=== PATIENT | female | born 1975 | race Caucasian/White ===

== ENCOUNTER 2021-10-12 11:50 | Emergency (ER) | payer OTHER ==
[2021-10-12 12:08] VITALS: O2SAT 98
--- NOTE | 2021-10-12 12:21 | XRAY ---
Indication: Pain following injury one week ago. Comparison: None 3 nonweightbearing views right foot demonstrates small spurring of the calcaneus and navicular bone. No other bony, articular, or soft tissue abnormalities.
--- NOTE | 2021-10-12 12:25 | XRAY ---
Indication: Pain following injury one week ago. Comparison: None 3 view right ankle demonstrates small spurring of the posterior/plantar calcaneus, anterior/posterior distal tibia, and navicular bone. No other bony, articular, or soft tissue abnormalities.
--- NOTE | 2021-10-12 12:32 | ERPHSYRPT ---
- History of Present Illness Time Seen by Provider: 10/12/21 12:10 Source: patient Exam Limitations: no limitations Patient Subjective Stated Complaint: Pt states "I stepped down on my right foot last week and it has hurt since." Triage Nursing Assessment: Pt presented alert and oriented X 3, skin wpd Pt ambulates with an upright steady gait, able to speak in clear full sentences. Pt stated her pain was a 10 out of 10 while laughing and joking. Physician History: Patient is a 46-year-old white female who stepped down from a step and landed wrongly and is complained of pain and swelling in the right foot and ankle for the past week which is getting worse. She denies any other injury or problems at present. Method of Injury: twisted Occurred: last week Quality: constant Severity of Pain-Max: moderate Severity of Pain-Current: moderate Lower Extremities Pain: foot: right (Puffiness on the dorsal lateral portion of the foot), ankle: right (Swelling of the lateral malleolus) Modifying Factors: Improves With: movement Associated Symptoms: none Allergies/Adverse Reactions: Penicillins Allergy (Severe, Verified 10/12/21 12:09) swelling of throat Home Medications: Buspirone HCl 5 mg [Buspar 5 mg] 10 mg PO DAILY 10/12/21 [History] Duloxetine HCl 60 mg PO DAILY 10/12/21 [History] Gabapentin 400 mg [Neurontin 400 MG] 400 mg PO TID 10/12/21 [History] Hydroxyzine HCl 50 mg/ml [Vistaril 50 MG/ML] 50 mg PO DAILY 10/12/21 [History] Hx Tetanus, Diphtheria Vaccination/Date Given: No Hx Influenza Vaccination/Date Given: Yes Hx Pneumococcal Vaccination/Date Given: No Immunizations Up to Date: Yes Travel Risk - International Travel Have you traveled outside of the country in past 3 weeks: No - Coronavirus Screening Are you exhibiting any of the following symptoms?: No Close contact with a COVID-19 positive Pt in past 14-21 Days: No - Vaccine Status Have you recieved a Covid-19 vaccination: No - Review of Systems Constitutional: No Fever, No Chills Eyes: No Symptoms Ears, Nose, & Throat: No Symptoms Respiratory: No Cough, No Dyspnea Cardiac: No Chest Pain, No Edema, No Syncope Abdominal/Gastrointestinal: No Abdominal Pain, No Nausea, No Vomiting, No Diarrhea Genitourinary Symptoms: No Dysuria Musculoskeletal: No Back Pain, No Neck Pain Skin: No Rash Neurological: No Dizziness, No Focal Weakness, No Sensory Changes Psychological: No Symptoms Endocrine: No Symptoms All Other Systems: Reviewed and Negative - Past Medical History Pertinent Past Medical History: Yes Psycho-Social History: Anxiety, Depression Other Medical History: neuropathy. htn. hyperlipidemia - Past Surgical History Past Surgical History: No - Social History Smoking Status: Current every day smoker How long have you smoked: years Exposure to second hand smoke: Yes Drug Use: none Patient Lives Alone: No - Female History Hx Last Menstrual Period: 10/12/2021 Hx Now: No - Nursing Vital Signs Nursing Vital Signs: Initial Vital Signs Temperature 98.5 F 10/12/21 11:59 Pulse Rate 76 10/12/21 11:59 Respiratory Rate 20 10/12/21 11:59 Blood Pressure 168/88 10/12/21 11:59 O2 Sat by Pulse Oximetry 98 10/12/21 11:59 Pain Scale Pain Intensity 10 - Physical Exam General Appearance: mild distress, alert Eyes, Ears, Nose, Throat Exam: moist mucous membranes Neck Exam: normal inspection, non-tender, supple Cardiovascular/Respiratory Exam: chest non-tender, no respiratory distress Back Exam: normal inspection, normal range of motion Hips Exam: bilateral: non-tender, normal inspection, normal range of motion Legs Exam: bilateral leg: non-tender, normal inspection, normal range of motion Knees Exam: bilateral knee: non-tender, normal inspection, normal range of motion Ankle Exam: right ankle: pain, soft tissue tenderness, swelling Foot Exam: right foot: pain, soft tissue tenderness, swelling Neuro/Tendon Exam: normal sensation, normal motor functions Mental Status Exam: alert, oriented x 3, cooperative Skin Exam: normal color, warm, dry SpO2 Interpretation: normal SpO2: 98 O2 Delivery: Room Air Procedures - Splinting Time of Procedure: 12:32 Location of Splint: Right, Foot, Ankle Type of Splint: Walking Boot/Shoe Splint Applied By: ED Nurse Pre-Proc Neuro Vasc Exam: normal Post-Proc Neuro Vasc Exam: neurovascular intact - Course Nursing assessment & vital signs reviewed: Yes - Radiology Exams Ankle X-ray Interpretation: Interpreted by me, Other (X-ray shows some bone spurring but no obvious fracture or dislocation.) Ordered Tests: Active Orders 24 hr Category Date Time Status ANKLE (3 VIEWS) Stat Exams 10/12/21 11:56 Completed FOOT (MINIMUM 3 VIEWS) Stat Exams 10/12/21 11:56 Completed - Progress Progress: unchanged - Departure Departure Disposition: Home Clinical Impression: Sprain of right ankle Condition: Stable Critical Care Time: No Instructions: Foot Sprain (DC) Forms: Work/School Release Form Prescriptions: Diclofenac Sodium 50 mg [Voltaren 50 mg] 50 mg PO TID #15 cap
[2021-10-12 12:50] VITALS: BP 160/70; PULSE 80
== END 2021-10-12 12:57 | disposition home or self-care (01) ==
LOC: ED 11:50
DX: S93.401A Sprain of unspecified ligament of right ankle, initial encounter (principal); X50.1XXA Overexertion from prolonged static or awkward postures, initial encounter; M79.671 Pain in right foot; I10 Essential (primary) hypertension; E78.5 Hyperlipidemia, unspecified
CPT/HCPCS: 73610; 73630; 99284; L4386

== ENCOUNTER 2021-10-24 10:46 | Emergency (ER) | payer OTHER ==
[2021-10-24 11:05] VITALS: BP 120/77; PULSE 68; O2SAT 98
--- NOTE | 2021-10-24 11:11 | ERPHSYRPT ---
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 Triage Nursing Assessment: pt alert, walked in, resp easy, skin w/d/p. 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 She noticed that in the last 24 hours there was surrounding redness and seems to have coalesced to a small abscess and appears to be draining spontaneously. She has full range of motion sensation is intact she also complains of chronic right otitis externa the ears been draining and has been painful for several days. Timing/Duration: yesterday Severity: mild Modifying Factors: Improves With: nothing Associated Symptoms: denies symptoms Allergies/Adverse Reactions: Penicillins Allergy (Severe, Verified 10/24/21 10:57) swelling of throat Home Medications: Buspirone HCl 5 mg [Buspar 5 mg] 10 mg PO DAILY 10/12/21 [History] Duloxetine HCl 60 mg PO DAILY 10/12/21 [History] Gabapentin 400 mg [Neurontin 400 MG] 400 mg PO TID 10/12/21 [History] Hydroxyzine HCl 50 mg/ml [Vistaril 50 MG/ML] 50 mg PO DAILY 10/12/21 [History] Hx Tetanus, Diphtheria Vaccination/Date Given: No Hx Influenza Vaccination/Date Given: Yes Hx Pneumococcal Vaccination/Date Given: No Immunizations Up to Date: Yes Travel Risk - International Travel Have you traveled outside of the country in past 3 weeks: No - Coronavirus Screening Are you exhibiting any of the following symptoms?: No Close contact with a COVID-19 positive Pt in past 14-21 Days: No - Vaccine Status Have you recieved a Covid-19 vaccination: No - Review of Systems Constitutional: No Fever, No Chills Eyes: No Symptoms Ears, Nose, & Throat: Ear Pain, Ear Discharge Respiratory: No Cough, No Dyspnea Cardiac: No Chest Pain, No Edema, No Syncope Abdominal/Gastrointestinal: No Abdominal Pain, No Nausea, No Vomiting, No Diarrhea Genitourinary Symptoms: No Dysuria Musculoskeletal: No Back Pain, No Neck Pain Skin: Other (Small red warm pustular area right wrist), No Rash Neurological: No Dizziness, No Focal Weakness, No Sensory Changes Psychological: No Symptoms Endocrine: No Symptoms All Other Systems: Reviewed and Negative - Past Medical History Pertinent Past Medical History: Yes Neurological History: Migraines Cardiac History: High Cholesterol, Hypertension Psycho-Social History: Anxiety, Depression Other Medical History: neuropathy. htn. hyperlipidemia - Past Surgical History Past Surgical History: No - Social History Smoking Status: Current every day smoker How long have you smoked: years Exposure to second hand smoke: Yes Drug Use: none Patient Lives Alone: No - Female History Hx Last Menstrual Period: sep 2021 Hx Now: No - Nursing Vital Signs Nursing Vital Signs: Initial Vital Signs Temperature 96.6 F 10/24/21 11:00 Pulse Rate 68 10/24/21 11:00 Respiratory Rate 18 10/24/21 11:00 Blood Pressure 120/77 10/24/21 11:00 O2 Sat by Pulse Oximetry 98 10/24/21 11:00 Pain Scale Pain Intensity 4 - Physical Exam General Appearance: no apparent distress, alert Eye Exam: PERRL/EOMI, eyes nml inspection Ears, Nose, Throat Exam: TMs normal, pharynx normal, moist mucous membranes, TM abnormal (R), other (Right ear is inflamed canal is swollen there is clear serous fluid.) Neck Exam: normal inspection, non-tender, supple, full range of motion Respiratory Exam: normal breath sounds, lungs clear, No respiratory distress Cardiovascular Exam: regular rate/rhythm, normal heart sounds, normal peripheral pulses Gastrointestinal/Abdomen Exam: soft, normal bowel sounds, No tenderness, No mass Back Exam: normal inspection, normal range of motion, No CVA tenderness, No vertebral tenderness Extremity Exam: normal range of motion, pelvis stable, other (Examination of the right wrist shows a small pustular area with surrounding erythema about quarter size which is tender to touch.) Neurologic Exam: alert, oriented x 3, cooperative, normal mood/affect, nml cerebellar function, nml station & gait, sensation nml, No motor deficits Skin Exam: normal color, warm, dry, No rash Lymphatic Exam: No adenopathy SpO2: 98 - Course Nursing assessment & vital signs reviewed: Yes - Radiology Exams Wrist X-ray Interpretation: Reviewed by me, No Fracture, Other (No foreign bodies) Ordered Tests: Active Orders 24 hr Category Date Time Status WRIST (MIN 3 VIEWS) Stat Exams 10/24/21 11:04 Completed - Progress Progress: unchanged - Departure Departure Disposition: Home Clinical Impression: Otitis externa, Cellulitis Condition: Stable Critical Care Time: No Referrals: DOCTOR,NO FAMILY [Primary Care Provider] - Follow up/PCP as directed Instructions: Outer Ear Infection (DC) Prescriptions: clindamycin HCL [Cleocin HCl] 300 mg PO TID 7 Days #21 cap Alon/Baci/Poly/Hc Ear Susp [Cortisporin Ear Drops 10 ml Suspension] 10 ml OT QID #10 ml
--- NOTE | 2021-10-24 11:26 | XRAY ---
Indication: Pain and swelling. Foreign body. Comparison: None 3 view right wrist demonstrates normal bones, articulation, and soft tissues. Negative for radiopaque foreign body.
== END 2021-10-24 11:56 | disposition home or self-care (01) ==
LOC: ED 10:46
DX: H60.91 Unspecified otitis externa, right ear (principal); L03.113 Cellulitis of right upper limb; I10 Essential (primary) hypertension; E78.5 Hyperlipidemia, unspecified; G62.9 Polyneuropathy, unspecified; Z79.899 Other long term (current) drug therapy; Z72.0 Tobacco use
CPT/HCPCS: 73110; 99283

== ENCOUNTER 2021-11-15 11:16 | Emergency (ER) | payer OTHER ==
[2021-11-15 11:30] VITALS: O2SAT 98
--- NOTE | 2021-11-15 11:42 | ERPHSYRPT ---
- History of Present Illness Time Seen by Provider: 11/15/21 11:35 Source: patient Exam Limitations: no limitations Patient Subjective Stated Complaint: Right sided earache Triage Nursing Assessment: Patient ambulated back to ED and transferred self to bed. Patient A+O X3. Patient's skin pink, warm and dry. Patient complains of right sided ear pain for one week. Patient complains of yellow drainage coming from right ear. Patient complains of pain 8/10. Physician History: Patient is a 46-year-old female presents to our ED with complaints of pain to her right ear. Patient states she has been experiencing drainage from her right ear for approximately 1 week. Drainage described as yellow in color. Patient describes 8 out of 10 pain. No mastoid tenderness. No difficulty hearing. No dizziness. Symptoms are progressive. Symptoms are moderate in intensity. No specific worsening improving factors. No associated headache. No nausea or vomiting. No fever. No trauma, no neck pain no photophobia. Patient has no meningeal signs. Patient otherwise healthy. Patient voices no other complaints or concerns at this time. Timing/Duration: gradual onset Severity: moderate ENT Location: ear (R) Prearrival Treatment: no prearrival treatment Modifying Factors: Improves With: nothing Associated Symptoms: ear drainage, No fever, No facial pain/swelling, No headache, No hearing loss, No jaw pain, No nasal congestion/drainage, No poor fluid intake, No poor solids intake, No ringing of ears Allergies/Adverse Reactions: Penicillins Allergy (Severe, Verified 11/15/21 11:22) swelling of throat Home Medications: Buspirone HCl 5 mg [Buspar 5 mg] 10 mg PO DAILY 10/12/21 [History] Duloxetine HCl 60 mg PO DAILY 10/12/21 [History] Gabapentin 400 mg [Neurontin 400 MG] 400 mg PO TID 10/12/21 [History] Hydroxyzine HCl 50 mg/ml [Vistaril 50 MG/ML] 50 mg PO DAILY 10/12/21 [History] Hx Tetanus, Diphtheria Vaccination/Date Given: No Hx Influenza Vaccination/Date Given: No Hx Pneumococcal Vaccination/Date Given: No Immunizations Up to Date: Yes Travel Risk - International Travel Have you traveled outside of the country in past 3 weeks: No - Coronavirus Screening Are you exhibiting any of the following symptoms?: No Close contact with a COVID-19 positive Pt in past 14-21 Days: No - Vaccine Status Have you recieved a Covid-19 vaccination: No - Review of Systems Constitutional: No Symptoms, No Fever, No Chills Eyes: No Symptoms Ears, Nose, & Throat: No Symptoms Respiratory: No Symptoms, No Cough, No Dyspnea Cardiac: No Symptoms, No Chest Pain, No Edema, No Syncope Abdominal/Gastrointestinal: No Symptoms, No Abdominal Pain, No Nausea, No Vomiting, No Diarrhea Genitourinary Symptoms: No Symptoms, No Dysuria Musculoskeletal: No Symptoms, No Back Pain, No Neck Pain Skin: No Symptoms, No Rash Neurological: No Symptoms, No Dizziness, No Focal Weakness, No Sensory Changes Psychological: No Symptoms Endocrine: No Symptoms Hematologic/Lymphatic: No Symptoms Immunological/Allergic: No Symptoms All Other Systems: Reviewed and Negative - Past Medical History Pertinent Past Medical History: Yes Neurological History: Migraines Cardiac History: High Cholesterol, Hypertension Psycho-Social History: Anxiety, Depression Other Medical History: neuropathy. htn. hyperlipidemia - Past Surgical History Past Surgical History: No - Social History Smoking Status: Never smoker How long have you smoked: years Exposure to second hand smoke: No Drug Use: none Patient Lives Alone: No - Female History Hx Now: No - Nursing Vital Signs Nursing Vital Signs: Initial Vital Signs Temperature 97.9 F 11/15/21 11:23 Pulse Rate 63 11/15/21 11:23 Respiratory Rate 18 11/15/21 11:23 Blood Pressure 146/79 11/15/21 11:23 O2 Sat by Pulse Oximetry 98 11/15/21 11:23 Pain Scale Pain Intensity 8 - Physical Exam General Appearance: no apparent distress, alert Eye Exam: bilateral eye: normal inspection, PERRL, EOMI Ear Exam: right ear: discharge, TM red, left ear: auricle normal, canal normal, TM normal, bleeding Nasal Exam: normal inspection Throat Exam: pharynx normal, moist mucus membranes, No tonsillar exudate Neck Exam: normal inspection, non-tender, supple, full range of motion, trachea midline Cardiovascular/Respiratory Exam: normal breath sounds, regular rate/rhythm, heart sounds normal, no respiratory distress, normal peripheral pulses, No decreased breath sounds Abdominal Exam: non-tender, soft, no organomegaly, No tenderness Neurologic Exam: alert, oriented x 3, icu staff nurse II-XII nml as tested, nml cerebellar function, sensation nml, No motor deficits, No sensory deficit, No slurred speec h Skin Exam: normal color, warm, dry, No rash SpO2 Interpretation: normal SpO2: 98 O2 Delivery: Room Air - Course Nursing assessment & vital signs reviewed: Yes - Progress Progress: improved Progress Note: Patient requested ibuprofen for pain. 600 mg ibuprofen p.o. provided. We administered Cortisporin eardrops into the involved ear here in our ED. Patient was given the bottle. There should be enough eardrops medication to last for a week or at least until her visit with primary care doctor within 48 hours. Patient agrees to follow-up with her primary care doctor within 48 hours for evaluation. There is no mastoid pain or tenderness. No indication for further work-up. Patient states he was treated for her ear infection last week. Patient was treated with oral antibiotics. However patient has no otitis externa which requires eardrops. Portions of this note were created with voice recognition technology. There may be grammatical, spelling, punctuation or sound alike errors 11/15/21 11:55 Counseled pt/family regarding: diagnosis, need for follow-up - Departure Departure Disposition: Home Clinical Impression: Otitis externa Condition: Good Critical Care Time: No Referrals: DOCTOR,NO FAMILY [Primary Care Provider] - Follow up/PCP as directed JORGE BRISENO [ACTIVE STAFF] - Follow up/PCP as directed Additional Instructions: Discharge/Care Plan KAREN CHAUHAN was seen on 11/15/21 in the Emergency Room. The patient was counseled regarding Diagnosis,Lab results, Imaging studies, need for follow up and when to return to the Emergency Room. Prescriptions given: Discharge Note I have spoken with the patient and/or caregivers. I have explained the patient's condition, diagnosis and treatment plan based on the information available to me at this time. I have answered the patient's and/or caregiver's questions and addressed any concerns. The patient and/or caregivers have as good understanding of the patient's diagnosis, condition and treatment plan as can be expected at this point. The vital signs have been stable. The patient's condition is stable and appropriate for discharge from the emergency department. The patient will pursue further outpatient evaluation with the primary care physician or other designated or consulting physician as outlined in the discharge instructions. The patient and/or caregivers are agreeable to this plan of care and follow-up instructions have been explained in detail. The patient and/or caregivers have received these instruction. The patient/and or caregivers are aware that any significant change in condition or worsening of symptoms should prompt an immediate return to this or the closest emergency department or call 911.
[2021-11-15] MEDS ORDERED: CORTISPORIN EAR DROPS 10 ML SUSPENSION OT ONE (11:54)
[2021-11-15] MEDS ORDERED: MOTRIN 600 MG ONE (11:55)
[2021-11-15] MEDS ORDERED: CORTISPORIN EAR DROPS Solution 1OML OT ONE (11:56)
[2021-11-15] MEDS ORDERED: MOTRIN 600 MG PO ONE (11:57)
[2021-11-15 12:12] VITALS: BP 140/62; PULSE 60
[2021-11-15] MEDS ORDERED: CORTISPORIN EAR DROPS 10 ML SUSPENSION OT SCH (12:15)
== END 2021-11-15 12:26 | disposition home or self-care (01) ==
LOC: ED 11:16
DX: H60.91 Unspecified otitis externa, right ear (principal); H92.01 Otalgia, right ear; H92.11 Otorrhea, right ear; E78.5 Hyperlipidemia, unspecified; I10 Essential (primary) hypertension; G62.9 Polyneuropathy, unspecified; Z79.899 Other long term (current) drug therapy
CPT/HCPCS: 99283; A9270-GY

== ENCOUNTER 2021-11-28 12:12 | Emergency (ER) | payer OTHER ==
[2021-11-28] MEDS ORDERED: TORAdol 30 mg Injection IM ONE (12:27)
[2021-11-28] MEDS ORDERED: TORAdol 30 mg Injection ONE (12:31)
--- NOTE | 2021-11-28 12:56 | XRAY ---
Indication: Heel pain. Comparison: October 12, 2021. 3 portable views right ankle unchanged again demonstrating small spurring posterior/plantar calcaneus, anterior/posterior distal tibia, and navicular bone. No new/acute abnormalities.
--- NOTE | 2021-11-28 13:20 | ERPHSYRPT ---
- History of Present Illness Time Seen by Provider: 11/28/21 12:27 Source: patient Exam Limitations: no limitations Patient Subjective Stated Complaint: Pt states "I was here for this awhile ago and you guys gave me a boot for this and said I have bone spurs and It still h urts." Triage Nursing Assessment: Pt presented alert and oriented X 3, skin pwd Pt ambulates with a limp. Pt right ankle slightly swollen and right heel slightly swollen. no other injuries or complaints. Physician History: 46 years old female presented in the ER with chief complaint of right ankle pain and swelling for the last 3 weeks after she tripped and bent her ankle, was evaluated in the ER here, was given walking boot but her symptoms are not improving. Patient reports it is better with resting but she is on her feet all day long and cannot use her long boot all the time and lately hurting more with ambulation with swelling of lateral ankle and pain shoots in the lower leg. No new fall or trauma reported. Patient is currently at the rehab and was sent in here for reevaluation. Method of Injury: twisted Occurred: days ago (20) Severity of Pain-Max: moderate Severity of Pain-Current: moderate Lower Extremities Pain: ankle: right Modifying Factors: Improves With: immobilization. Worsens With: movement Associated Symptoms: No unable to bear weight Allergies/Adverse Reactions: Penicillins Allergy (Severe, Verified 11/15/21 11:22) swelling of throat Home Medications: Buspirone HCl 5 mg [Buspar 5 mg] 10 mg PO DAILY 10/12/21 [History] Duloxetine HCl 60 mg PO DAILY 10/12/21 [History] Gabapentin 400 mg [Neurontin 400 MG] 400 mg PO TID 10/12/21 [History] Hydroxyzine HCl 50 mg/ml [Vistaril 50 MG/ML] 50 mg PO DAILY 10/12/21 [History] Hx Tetanus, Diphtheria Vaccination/Date Given: No Hx Influenza Vaccination/Date Given: No Hx Pneumococcal Vaccination/Date Given: No Immunizations Up to Date: Yes Travel Risk - International Travel Have you traveled outside of the country in past 3 weeks: No - Coronavirus Screening Are you exhibiting any of the following symptoms?: No Close contact with a COVID-19 positive Pt in past 14-21 Days: No - Vaccine Status Have you recieved a Covid-19 vaccination: No - Review of Systems Constitutional: No Symptoms Ears, Nose, & Throat: No Symptoms Respiratory: No Symptoms Cardiac: No Symptoms Abdominal/Gastrointestinal: No Symptoms Genitourinary Symptoms: No Symptoms (2-3) Musculoskeletal: Injury, Joint Pain, Joint Swelling Skin: No Symptoms Neurological: No Symptoms Hematologic/Lymphatic: No Symptoms Immunological/Allergic: No Symptoms - Past Medical History Pertinent Past Medical History: Yes Neurological History: Migraines Cardiac History: High Cholesterol, Hypertension Psycho-Social History: Anxiety, Depression Other Medical History: neuropathy. htn. hyperlipidemia - Past Surgical History Past Surgical History: No - Social History Smoking Status: Never smoker How long have you smoked: years Exposure to second hand smoke: No Drug Use: none Patient Lives Alone: No - Female History Hx Last Menstrual Period: 11/02/2021 Hx Now: No - Nursing Vital Signs Nursing Vital Signs: Initial Vital Signs Temperature 99.3 F 11/28/21 12:16 Pulse Rate 89 11/28/21 12:16 Respiratory Rate 18 11/28/21 12:16 Blood Pressure 143/84 11/28/21 12:16 O2 Sat by Pulse Oximetry 99 11/28/21 12:16 Pain Scale Pain Intensity 6 - Physical Exam General Appearance: no apparent distress, alert Eyes, Ears, Nose, Throat Exam: normal ENT inspection Neck Exam: normal inspection, supple, full range of motion Cardiovascular/Respiratory Exam: normal breath sounds, regular rate/rhythm Back Exam: normal inspection Legs Exam: bilateral leg: non-tender, normal inspection, normal range of motion, no evidence of injury Knees Exam: bilateral knee: non-tender, normal inspection, normal range of motion, no evidence of injury Ankle Exam: right ankle: bone tenderness (Lateral malleolus), pain, soft tissue tenderness, swelling, left ankle: non-tender, normal inspection, no evidence of injury, bilateral ankle: normal range of motion Foot Exam: right foot: soft tissue tenderness (Anterolateral foot), left foot: normal inspection, bilateral foot: non-tender, normal range of motion Neuro/Tendon Exam: normal sensation, normal motor functions, normal tendon functions Mental Status Exam: alert, oriented x 3, cooperative Skin Exam: normal color SpO2 Interpretation: normal SpO2: 99 O2 Delivery: Room Air Ordered Tests: Active Orders 24 hr Category Date Time Status ANKLE (3 VIEWS) Stat Exams 11/28/21 Completed Medication Summary Discontinued Medications Generic Name Dose Route Start Last Admin Trade Name Go PRN Reason Stop Dose Admin Ketorolac Tromethamine 30 mg 11/28/21 12:27 11/28/21 12:36 Ketorolac Tromethamine 30 Mg/Ml Inj IM 11/28/21 12:28 30 mg STAT ONE Administration Ketorolac Tromethamine Confirm 11/28/21 12:31 Ketorolac Tromethamine 30 Mg/Ml Inj Administered 11/28/21 12:32 Dose 30 mg .ROUTE .STK-MED ONE - Progress Progress: improved Progress Note: 11/28/21 13:18 Obtained another x-ray which are negative, given Toradol and feeling better on reevaluation. Recommended outpatient follow-up with podiatry and using walking boot all the time. Counseled pt/family regarding: diagnosis, need for follow-up, rad results - Departure Departure Disposition: Home Clinical Impression: Sprain of right ankle Condition: Stable Critical Care Time: No Referrals: DOCTOR,NO FAMILY [Primary Care Provider] - Follow up/PCP as directed SAMIRA RAMIREZ DPM [ACTIVE STAFF] - Follow up/PCP as directed (Call tomorrow for appointment for reevaluation) Instructions: Ankle Sprain (DC) Additional Instructions: Take Tylenol/diclofenac as needed for pain, intermittent ice, elevation, avoid exertional activities, use walking boot and weightbearing as tolerated. Follow- up with podiatry for reevaluation. Prescriptions: Diclofenac Sodium 50 mg PO TID PRN 7 Days #20 tab PRN Reason: Pain
[2021-11-28 13:26] VITALS: BP 138/78; PULSE 84
[2021-11-28 13:54] VITALS: O2SAT 99
== END 2021-11-28 13:37 | disposition home or self-care (01) ==
LOC: ED 12:12
DX: S93.401A Sprain of unspecified ligament of right ankle, initial encounter (principal); W18.40XA Slipping, tripping and stumbling without falling, unspecified, initial encounter; E78.5 Hyperlipidemia, unspecified; I10 Essential (primary) hypertension
CPT/HCPCS: 73610; 96372; 99284; J1885

== ENCOUNTER 2022-01-02 10:04 | Emergency (ER) | payer OTHER ==
--- NOTE | 2022-01-02 10:14 | ERPHSYRPT ---
- History of Present Illness Time Seen by Provider: 01/02/22 10:13 Source: patient Exam Limitations: no limitations Physician History: This is an obese 46-year-old white female who has a history of hypertension, peripheral neuropathy, anxiety and elevated cholesterol who was seen by Dr. Rodriges approximately 4 days ago and given a prescription of Bactrim DS for treatment of a right upper leg infection. The infection has been there for 5 days. Patient also had a right outer ear infection and this area has improved on the antibiotics. However the right upper leg infection is more red. There is increased tenderness as well. Patient is unable to have any narcotics. She has had Keflex in the past without any issues. Patient would like Toradol for pain control. Timing/Duration: day(s) (5) Quality: burning, painful Severity: mild (To moderate) Location: extremities (Right upper outer leg) Possible Causes: no cause identified Allergies/Adverse Reactions: Penicillins Allergy (Severe, Verified 01/02/22 10:15) swelling of throat Home Medications: Buspirone HCl 5 mg [Buspar 5 mg] 10 mg PO DAILY 10/12/21 [History] Duloxetine HCl 60 mg PO DAILY 10/12/21 [History] Gabapentin 400 mg [Neurontin 400 MG] 400 mg PO TID 10/12/21 [History] Hydroxyzine HCl 50 mg/ml [Vistaril 50 MG/ML] 50 mg PO DAILY 10/12/21 [History] Lisinopril 10 mg [Zestril 10 MG] 10 mg PO DAILY 01/02/22 [History] Propranolol HCl 10 mg DAILY 01/02/22 [History] Rizatriptan Benzoate [Rizatriptan] 10 mg PO DAILY 01/02/22 [History] Hx Tetanus, Diphtheria Vaccination/Date Given: No Hx Influenza Vaccination/Date Given: No Hx Pneumococcal Vaccination/Date Given: No Travel Risk - International Travel Have you traveled outside of the country in past 3 weeks: No - Coronavirus Screening Are you exhibiting any of the following symptoms?: No Close contact with a COVID-19 positive Pt in past 14-21 Days: No - Vaccine Status Have you recieved a Covid-19 vaccination: No - Review of Systems Constitutional: No Symptoms Eyes: No Symptoms Ears, Nose, & Throat: No Symptoms Respiratory: No Symptoms Cardiac: No Symptoms Abdominal/Gastrointestinal: No Symptoms Genitourinary Symptoms: No Symptoms Musculoskeletal: No Symptoms Skin: Cellulitis, Induration (Right upper outer leg) Neurological: No Symptoms Psychological: No Symptoms Endocrine: No Symptoms Hematologic/Lymphatic: No Symptoms Immunological/Allergic: No Symptoms All Other Systems: Reviewed and Negative - Past Medical History Pertinent Past Medical History: Yes Neurological History: Migraines Cardiac History: High Cholesterol, Hypertension Psycho-Social History: Anxiety, Depression Other Medical History: neuropathy. htn. hyperlipidemia - Past Surgical History Past Surgical History: No - Social History Smoking Status: Never smoker How long have you smoked: years Exposure to second hand smoke: No Drug Use: none Patient Lives Alone: No - Nursing Vital Signs Nursing Vital Signs: Initial Vital Signs Temperature 98.4 F 01/02/22 10:10 Pulse Rate 76 01/02/22 10:10 Respiratory Rate 18 01/02/22 10:10 Blood Pressure 120/80 01/02/22 10:10 O2 Sat by Pulse Oximetry 98 01/02/22 10:10 Pain Scale Pain Intensity 9 - Physical Exam General Appearance: no apparent distress, alert, anxiety, obese Eye Exam: PERRL/EOMI, eyes nml inspection Ears, Nose, Throat Exam: normal ENT inspection, moist mucous membranes Neck Exam: normal inspection, non-tender, supple, full range of motion Respiratory Exam: airway intact, No chest tenderness, No respiratory distress Gastrointestinal/Abdomen Exam: No tenderness Pelvic Exam: not done Rectal Exam: not done Extremity Exam: normal range of motion, pelvis stable Neurologic Exam: alert, oriented x 3, cooperative, communications and signals supervisor II-XII nml as tested, normal mood/affect, nml cerebellar function, nml station & gait, sensation nml Skin Exam: other (Localized cellulitis and induration right upper outer thigh. No abscess present. I was able to express of tiny amount of fluid which was cultured) Lymphatic Exam: No adenopathy SpO2 Interpretation: normal O2 Delivery: Room Air - Course Nursing assessment & vital signs reviewed: Yes Ordered Tests: Active Orders 24 hr Category Date Time Status CULTURE,WOUND Stat Lab 01/02/22 10:33 Ordered Medication Summary Discontinued Medications Generic Name Dose Route Start Last Admin Trade Name Freq PRN Reason Stop Dose Admin Ceftriaxone Sodium 1,000 mg 01/02/22 10:33 Ceftriaxone Sodium 1000 Mg Inj Vial IM 01/02/22 10:34 STAT ONE Ketorolac Tromethamine 60 mg 01/02/22 10:33 Ketorolac Tromethamine 30 Mg/Ml Inj IM 01/02/22 10:34 STAT ONE - Progress Progress: unchanged, pain not gone completely Counseled pt/family regarding: diagnosis, need for follow-up - Departure Departure Disposition: Home Clinical Impression: Cellulitis of right leg Condition: Stable Critical Care Time: No Referrals: DOCTOR,NO FAMILY [Primary Care Provider] - Follow up/PCP as directed Additional Instructions: Scrub area of infection daily with soap and water. Continue applying your topical antibiotic until that is gone. Complete your Bactrim DS prescription then start the doxycycline prescription. Call Dr. Rodriges's office today to make arrangements for follow-up appointment for further evaluation and management.
[2022-01-02 10:15] VITALS: BP 120/80; PULSE 76; O2SAT 98
[2022-01-02] MEDS ORDERED: TORAdol 30 mg Injection IM ONE (10:33)
[2022-01-02] MEDS ORDERED: Rocephin 1000 MG INJ IM ONE (10:33)
[2022-01-02] MEDS ORDERED: Rocephin 1000 MG INJ ONE (10:39)
[2022-01-02] MEDS ORDERED: TORAdol 30 mg Injection ONE (10:39)
[2022-01-02] MEDS ORDERED: XYLOCAINE 1% HCL 20 ML MDV ONE (10:40)
== END 2022-01-02 11:22 | disposition home or self-care (01) ==
LOC: ED 10:04
DX: L03.115 Cellulitis of right lower limb (principal); M79.651 Pain in right thigh; E78.5 Hyperlipidemia, unspecified; I10 Essential (primary) hypertension; G62.9 Polyneuropathy, unspecified; Z79.899 Other long term (current) drug therapy
CPT/HCPCS: 87070; 87077; 87186; 96372; 99284; J0696; J1885

== ENCOUNTER 2022-01-10 14:28 | Emergency (ER) | payer OTHER ==
[2022-01-10 16:03] LABS: Absolute Neutrophil Ct (ANC) 6.43 (1.4-6.9); Basophil (Absolute #) 0.03 (0-0.4); Eosinophil % 1.2 % (0.00-5.0); Eosinophil (Absolute #) 0.11 (0-0.5); Hematocrit 40.4 % (35-47); Hemoglobin 13.2 gm/dl (12.0-16.0); Lymphocyte (Absolute #) 1.85 (1.0-4.6); Lymphocytes % 20.6 % (24.0-44.0); Mean Corpuscular Hemoglobin 29.4 pg (26-32); Mean Corpuscular Hgb Concent. 32.7 g/dl (32-36); Mean Platelet Volume 10.2 fl (7.5-11.0); Monocyte (Absolute #) 0.54 (0.0-1.3); Neutrophil % 71.9 % (36.0-66.0); Platelet Count 294 K/mm3 (150-450); Red Blood Count 4.49 M/mm3 (4.1-5.4)
[2022-01-10 16:14] LABS: ACETAMINOPHEN < 10 ug/ml (10-30); ALBUMIN 3.9 g/dL (3.5-5.0); ALKALINE PHOSPHATASE 132 U/L (38-126); ANION GAP 10.8 MEQ/L (5-15); BLOOD UREA NITROGEN 10 mg/dL (7-17); CHLORIDE 101 mmol/L (98-107); Calcium 8.8 mg/dL (8.4-10.2); Carbon Dioxide 28 mmol/L (22-30); Creatinine 1 0.72 mg/dL (0.52-1.04); EST GLOMERULAR FILTRATION RATE > 60.0 ML/MIN; ETHYL ALCOHOL < 10 mg/dL (0-10); Glucose 105 mg/dL (74-106); Potassium 4.2 mmol/L (3.5-5.1); SALICYLATE < 1.0 mg/dL (2-20); SGOT/AST 28 U/L (14-36); SGPT/ALT 60 U/L (0-35); SODIUM 136 mmol/L (137-145); Total Protein 6.8 g/dL (6.3-8.2)
--- NOTE | 2022-01-10 16:15 | ERPHSYRPT ---
- History of Present Illness Source: patient Exam Limitations: no limitations Patient Subjective Stated Complaint: " I've been under a lot of stress and I have thoughts of harming myself". Triage Nursing Assessment: Pt presents to ER with a friend from the [facility] (sober living). Pt is alert and orienting, she is willing to get help. Pt skin is pink, warm, and dry. Pt respirations are easy and unlabored. Pt is calm and cooraperative. Pt states that she has been under a lot of stress lately and having thoughts of suicide and self harm. Denies any plan. Gave her pills and razors to lady that is in charge at [facility] so she wouldn't hurt self. Pt has hx of anxiety and depression. Hx of substance abuse (meth) and has been sober since May 2021. Timing/Duration: day(s), week(s), gradual onset, worse Severity of Symptoms-Max: severe Severity of Symptoms-Current: severe Context related to: living circumstances Suicidal thoughts: gesture Associated Symptoms: anxiety, depressed, frustrated, impaired concentration, suicidal ideation Previous symptoms: same symptoms as today Hx Tetanus, Diphtheria Vaccination/Date Given: No Hx Influenza Vaccination/Date Given: No Hx Pneumococcal Vaccination/Date Given: No Immunizations Up to Date: No <WALTER SAMUELS - Last Filed: 01/10/22 18:56> <ERNIE MONAHAN - Last Filed: 01/10/22 20:57> - History of Present Illness Time Seen by Provider: 01/10/22 14:57 Physician History: 46 years old female with history of anxiety/depression/hypertension/hyperlipide caitlyn currently resident of [facility]/sober living presented in the ER with her friend with worsening symptoms of depression/frustration and suicidal ideations for quite some time which got really bad yesterday. Patient reports she is going through a lot of stress especially related to her 16-year old child. Patient denies any specific plan but does have history of suicidal ideations in the past with multiple behavioral health admissions. Patient wants help before it gets worse to the point that she has to actually committed. Denies any homicidal ideations. Denies any drug or alcohol use. (WALTER SAMUELS) Allergies/Adverse Reactions: Penicillins Allergy (Severe, Verified 01/10/22 15:01) swelling of throat Home Medications: Buspirone HCl 5 mg [Buspar 5 mg] 15 mg PO DAILY 10/12/21 [History] Duloxetine HCl 60 mg PO DAILY 10/12/21 [History] Gabapentin 400 mg [Neurontin 400 MG] 400 mg PO TID 10/12/21 [History] Hydroxyzine HCl 50 mg/ml [Vistaril 50 MG/ML] 50 mg PO DAILY 10/12/21 [History] Lisinopril 10 mg [Zestril 10 MG] 10 mg PO DAILY 01/02/22 [History] Propranolol HCl 10 mg DAILY 01/02/22 [History] Rizatriptan Benzoate [Rizatriptan] 10 mg PO DAILY 01/02/22 [History] Atorvastatin Calcium 10 mg PO DAILY 01/10/22 [History] Travel Risk - International Travel Have you traveled outside of the country in past 3 weeks: No - Coronavirus Screening Are you exhibiting any of the following symptoms?: No Close contact with a COVID-19 positive Pt in past 14-21 Days: No - Vaccine Status Have you recieved a Covid-19 vaccination: No <WALTER SAMUELS - Last Filed: 01/10/22 18:56> - Past Medical History Pertinent Past Medical History: Yes Neurological History: Migraines Cardiac History: High Cholesterol, Hypertension Musculoskeletal History: Arthritis Psycho-Social History: Anxiety, Depression Other Medical History: neuropathy. htn. hyperlipidemia - Past Surgical History Past Surgical History: No - Social History Smoking Status: Current every day smoker How long have you smoked: years Exposure to second hand smoke: No Drug Use: methamphetamines Patient Lives Alone: No - Female History Hx Last Menstrual Period: 01/08/22 Hx Now: No <WALTER SAMUELS - Last Filed: 01/10/22 18:56> - Review of Systems Constitutional: No Symptoms Eyes: No Symptoms Ears, Nose, & Throat: No Symptoms Respiratory: No Symptoms Cardiac: No Symptoms Abdominal/Gastrointestinal: No Symptoms Genitourinary Symptoms: No Symptoms Musculoskeletal: No Symptoms Skin: No Symptoms Neurological: No Symptoms Psychological: Anxiety, Depression, Suicidal Ideations Endocrine: No Symptoms Hematologic/Lymphatic: No Symptoms Immunological/Allergic: No Symptoms <ABRILWALTER - Last Filed: 01/10/22 18:56> - Physical Exam General Appearance: no apparent distress, alert, anxiety Eyes, Ears, Nose, Throat Exam: normal ENT inspection Neck Exam: normal inspection, non-tender, supple, full range of motion Respiratory Exam: normal breath sounds, lungs clear Cardiovascular Exam: regular rate/rhythm, normal heart sounds Gastrointestinal/Abdominal Exam: soft, normal bowel sounds, No tenderness Extremities Exam: normal inspection Current Suicidality: denies suicide plan Neurological Exam: alert, calm, seam rubber II-XII nml as tested, oriented x 3, No normal mood/affect Appearance: appropriate appearance, appropriate insight Behavior/Eye Contact/Speech: alert & cooperative, cooperative, good eye contact, normal speech Thoughts/Hallucinations: normal thought pattern, no apparent hallucination Skin Exam: normal color SpO2 Interpretation: normal SpO2: 98 O2 Delivery: Room Air <ABRIL,WALTER - Last Filed: 01/10/22 18:56> - Nursing Vital Signs Nursing Vital Signs: Initial Vital Signs Temperature 98.1 F 01/10/22 14:50 Pulse Rate 72 01/10/22 14:50 Respiratory Rate 18 01/10/22 14:50 Blood Pressure 120/78 01/10/22 14:50 O2 Sat by Pulse Oximetry 98 01/10/22 14:50 Pain Scale Pain Intensity 0 Ordered Tests: Active Orders 24 hr Category Date Time Status ACETAMINOPHEN Stat Lab 01/10/22 15:44 Completed CBC W DIFF Stat Lab 01/10/22 15:44 Completed CMP Stat Lab 01/10/22 15:44 Completed ETHYL ALCOHOL Stat Lab 01/10/22 15:44 Completed SALICYLATE Stat Lab 01/10/22 15:44 Completed Urine Triage Profile Stat Lab 01/10/22 16:32 Completed Lab/Rad Data: Laboratory Result Diagrams 01/10/22 15:44 01/10/22 15:44 Laboratory Results 01/10/22 01/10/22 01/10/22 Range/Units 16:46 16:32 16:32 WBC (4.0-10.5) K/mm3 RBC (4.1-5.4) M/mm3 Hgb (12.0-16.0) gm/dl Hct (35-47) % MCV (78-100) fl MCH (26-32) pg MCHC (32-36) g/dl RDW (11.5-14.0) % Plt Count (150-450) K/mm3 MPV (7.5-11.0) fl Gran % (36.0-66.0) % Eos # (Auto) (0-0.5) Absolute Lymphs (auto) (1.0-4.6) Absolute Monos (auto) (0.0-1.3) Lymphocytes % (24.0-44.0) % Monocytes % (0.0-12.0) % Eosinophils % (0.00-5.0) % Basophils % (0.0-0.4) % Absolute Granulocytes (1.4-6.9) Basophils # (0-0.4) Sodium (137-145) mmol/L Potassium (3.5-5.1) mmol/L Chloride (98-107) mmol/L Carbon Dioxide (22-30) mmol/L Anion Gap (5-15) MEQ/L BUN (7-17) mg/dL Creatinine (0.52-1.04) mg/dL Estimated GFR ML/MIN Glucose (74-106) mg/dL Calcium (8.4-10.2) mg/dL Total Bilirubin (0.2-1.3) mg/dL AST (14-36) U/L ALT (0-35) U/L Alkaline Phosphatase (38-126) U/L Serum Total Protein (6.3-8.2) g/dL Albumin (3.5-5.0) g/dL Urinalys Dipstick Clnc MAIN LAB Urine Color Cancelled Urine Appearance Cancelled Urine pH Cancelled Ur Specific [place] Cancelled Urine Protein Cancelled POC Urine Protein Conf NEGATIVE (Negative) Urine Ketones Cancelled Urine Blood Cancelled Urine Nitrite Cancelled Urine Bilirubin Cancelled Urine Urobilinogen Cancelled Ur Leukocyte Esterase Cancelled Urine Leukocytes NEGATIVE (NEGATIVE) Urine WBC (Auto) NONE (0-5) /HPF Urine RBC (Auto) NONE (0-2) /HPF U Epithel Cells (Auto) NONE (FEW) /HPF Urine Bacteria (Auto) NONE (NEGATIVE) /HPF Urine RBC NEGATIVE (0-5) Clifford/ul U Non-Squamous Epi Cells Cancelled Urine Mucus (Auto) SLIGHT (NEGATIVE) /HPF Ur Culture Indicated? NO Urine Culture Reflexed Cancelled Urine Glucose NEGATIVE (NEGATIVE) mg/dL Salicylates (2-20) mg/dL Urine Opiates Level NEGATIVE (NEGATIVE) Ur Methadone NEGATIVE (NEGATIVE) Acetaminophen (10-30) ug/ml Urine Barbiturates NEGATIVE (NEGATIVE) Ur Phencyclidine (PCP) NEGATIVE (NEGATIVE) Urine Amphetamine NEGATIVE (NEGATIVE) U Benzodiazepine Level NEGATIVE (NEGATIVE) Urine Cocaine NEGATIVE (NEGATIVE) Urine Marijuana (THC) NEGATIVE (NEGATIVE) Ethyl Alcohol (0-10) mg/dL Influenza Type A Ag NEGATIVE (NEGATIVE) Influenza Type B Ag NEGATIVE (NEGATIVE) RSV (PCR) NEGATIVE (Negative) SARS-CoV-2 (PCR) NEGATIVE (NEGATIVE) 01/10/22 01/10/22 Range/Units 15:44 15:44 WBC 9.0 (4.0-10.5) K/mm3 RBC 4.49 (4.1-5.4) M/mm3 Hgb 13.2 (12.0-16.0) gm/dl Hct 40.4 (35-47) % MCV 90.0 (78-100) fl MCH 29.4 (26-32) pg MCHC 32.7 (32-36) g/dl RDW 15.0 H (11.5-14.0) % Plt Count 294 (150-450) K/mm3 MPV 10.2 (7.5-11.0) fl Gran % 71.9 H (36.0-66.0) % Eos # (Auto) 0.11 (0-0.5) Absolute Lymphs (auto) 1.85 (1.0-4.6) Absolute Monos (auto) 0.54 (0.0-1.3) Lymphocytes % 20.6 L (24.0-44.0) % Monocytes % 6.0 (0.0-12.0) % Eosinophils % 1.2 (0.00-5.0) % Basophils % 0.3 (0.0-0.4) % Absolute Granulocytes 6.43 (1.4-6.9) Basophils # 0.03 (0-0.4) Sodium 136 L (137-145) mmol/L Potassium 4.2 (3.5-5.1) mmol/L Chloride 101 (98-107) mmol/L Carbon Dioxide 28 (22-30) mmol/L Anion Gap 10.8 (5-15) MEQ/L BUN 10 (7-17) mg/dL Creatinine 0.72 (0.52-1.04) mg/dL Estimated GFR > 60.0 ML/MIN Glucose 105 (74-106) mg/dL Calcium 8.8 (8.4-10.2) mg/dL Total Bilirubin 0.50 (0.2-1.3) mg/dL AST 28 (14-36) U/L ALT 60 H (0-35) U/L Alkaline Phosphatase 132 H (38-126) U/L Serum Total Protein 6.8 (6.3-8.2) g/dL Albumin 3.9 (3.5-5.0) g/dL Urinalys Dipstick Clnc Urine Color Urine Appearance Urine pH Ur Specific [place] Urine Protein POC Urine Protein Conf (Negative) Urine Ketones Urine Blood Urine Nitrite Urine Bilirubin Urine Urobilinogen Ur Leukocyte Esterase Urine Leukocytes (NEGATIVE) Urine WBC (Auto) (0-5) /HPF Urine RBC (Auto) (0-2) /HPF U Epithel Cells (Auto) (FEW) /HPF Urine Bacteria (Auto) (NEGATIVE) /HPF Urine RBC (0-5) Clifford/ul U Non-Squamous Epi Cells Urine Mucus (Auto) (NEGATIVE) /HPF Ur Culture Indicated? Urine Culture Reflexed Urine Glucose (NEGATIVE) mg/dL Salicylates < 1.0 L (2-20) mg/dL Urine Opiates Level (NEGATIVE) Ur Methadone (NEGATIVE) Acetaminophen < 10 L (10-30) ug/ml Urine Barbiturates (NEGATIVE) Ur Phencyclidine (PCP) (NEGATIVE) Urine Amphetamine (NEGATIVE) U Benzodiazepine Level (NEGATIVE) Urine Cocaine (NEGATIVE) Urine Marijuana (THC) (NEGATIVE) Ethyl Alcohol < 10 (0-10) mg/dL Influenza Type A Ag (NEGATIVE) Influenza Type B Ag (NEGATIVE) RSV (PCR) (Negative) SARS-CoV-2 (PCR) (NEGATIVE) - Progress Progress: unchanged <WALTER SAMUELS - Last Filed: 01/10/22 18:56> - Progress Will see patient in: other (transfer to Mental health facility) Counseled pt/family regarding: lab results, diagnosis, need for follow-up <ERNIE MONAHAN - Last Filed: 01/10/22 20:57> - Progress Progress Note: 01/10/22 18:47 She is medically cleared, behavioral health evaluation is pending and care is transferred to at shift change. (WALTER SAMUELS) 01/10/22 20:56 Please see attached telemetry mental health report. There advise patient to be transferred to mental health facility. (ERNIE MONAHAN) <WALTER SAMUELS - Last Filed: 01/10/22 18:56> - Departure Departure Disposition: Transfer Critical Care Time: Yes Critical Care Time(excluding separately billable procedures): Critical 30-74 mins <ERNIE MONAHAN - Last Filed: 01/10/22 20:57> - Departure Clinical Impression: Homicidal thoughts, Suicidal ideation Condition: Stable Referrals: ANDRZEJ LORENZO [Primary Care Provider] - Follow up/PCP as directed
[2022-01-10 17:31] LABS: INFLUENZA A NEGATIVE (NEGATIVE); INFLUENZA B NEGATIVE (NEGATIVE); RESPIRATORY SYNCTIAL VIRUS NEGATIVE (Negative); SARS-CoV-2 Xpert Express NEGATIVE (NEGATIVE)
[2022-01-10 18:00] LABS: Appearance CLEAR (CLEAR); Bilirubin NEGATIVE (NEGATIVE); Dipstick done @ ? MAIN LAB; Glucose NEGATIVE (NEGATIVE); Ketones NEGATIVE (NEGATIVE); Nitrite NEGATIVE (NEGATIVE); Ph 6.5 (5-6); Protein,Urine Dip NEGATIVE (Negative); RBC NEGATIVE Ery/ul (0-5); Specific Gravity 1.025 (1.005-1.025); Urobilinogen 0.2 mg/dL (0-1)
[2022-01-10 18:03] LABS: Mucus SLIGHT /HPF (NEGATIVE)
[2022-01-10 18:05] LABS: Urine Cultured Indicated? NO
[2022-01-10 18:24] LABS: Amphetamine,Urine NEGATIVE (NEGATIVE); Barbiturate,Urine NEGATIVE (NEGATIVE); Benzodiazepine,Urine NEGATIVE (NEGATIVE); Cocaine,Urine NEGATIVE (NEGATIVE); Methadone,Urine NEGATIVE (NEGATIVE); Opiate,Urine NEGATIVE (NEGATIVE); PCP,Urine NEGATIVE (NEGATIVE); THC,Urine NEGATIVE (NEGATIVE)
[2022-01-10 22:18] VITALS: BP 120/62; PULSE 67; O2SAT 98
== END 2022-01-10 22:37 ==
LOC: ED 14:28
DX: R45.851 Suicidal ideations (principal); R45.850 Homicidal ideations; Z62.820 Parent-biological child conflict; I10 Essential (primary) hypertension; E78.5 Hyperlipidemia, unspecified; F41.9 Anxiety disorder, unspecified; F32.A Depression, unspecified; Z72.0 Tobacco use; Z79.899 Other long term (current) drug therapy; Z20.828 Contact with and (suspected) exposure to other viral communicable diseases
CPT/HCPCS: 0241U; 36415; 80053; 80307; 81015; 84703; 85025; 99285; 99291; G0480; 90791; Q3014

== ENCOUNTER 2022-08-08 02:41 | Emergency (ER) | payer OTHER ==
[2022-08-08 02:50] VITALS: BP 124/62; PULSE 89; O2SAT 97
[2022-08-08] MEDS ORDERED: CLEOCIN 150 MG CAPSULE PO ONE (03:05)
[2022-08-08] MEDS ORDERED: DECADRON 10MG INJ. IM ONE (03:07)
[2022-08-08] MEDS ORDERED: DECADRON 10MG INJ. ONE (03:08)
[2022-08-08] MEDS ORDERED: CLEOCIN 150 MG CAPSULE ONE (03:08)
--- NOTE | 2022-08-08 03:12 | ERPHSYRPT ---
- History of Present Illness Time Seen by Provider: 08/08/22 03:00 Source: patient Exam Limitations: no limitations Patient Subjective Stated Complaint: I have a sore throat and both my ears hurt Triage Nursing Assessment: Pt ambulated into ER without diff. Pt c/o sore throat and bilat ear pain. Pt states, "I was around my son this weekend and he has strep throat, I think I have it now". Lungs clear, heart tones reg. Pt has hx of smoking 1PPD x35 years. Physician History: Patient is a 47-year-old female presents emergency department for evaluation of a sore throat. Patient also complains of bilateral ear pressure. Symptoms started yesterday. Patient states that her son was diagnosed with strep. Patient concerned that she may have strep throat. She has no other complaints. Symptoms are mild to moderate in intensity. Swallowing worsens symptoms. Patient able to tolerate oral secretions. Patient conversant. No muffled voice. No fever. No cough. Patient voices no other complaints or concerns at this time. Portions of this note were created with voice recognition technology. There may be grammatical, spelling, punctuation or sound alike errors Timing/Duration: yesterday Severity: moderate Associated Symptoms: denies symptoms Allergies/Adverse Reactions: Penicillins Allergy (Severe, Verified 08/08/22 02:56) swelling of throat Home Medications: Buspirone HCl 5 mg [Buspar 5 mg] 15 mg PO DAILY 10/12/21 [History] Gabapentin [Neurontin 400 MG] 600 mg PO TID 10/12/21 [History] Hydroxyzine HCl 50 mg/ml [Vistaril 50 MG/ML] 50 mg PO DAILY 10/12/21 [History] Lisinopril 10 mg [Zestril 10 MG] 10 mg PO DAILY 01/02/22 [History] Rizatriptan Benzoate [Rizatriptan] 10 mg PO DAILY 01/02/22 [History] Hx Tetanus, Diphtheria Vaccination/Date Given: Yes Hx Influenza Vaccination/Date Given: No Hx Pneumococcal Vaccination/Date Given: No Immunizations Up to Date: Yes Travel Risk - International Travel Have you traveled outside of the country in past 3 weeks: No - Coronavirus Screening Are you exhibiting any of the following symptoms?: Yes Symptoms: Cough: New Onset, Headaches/Body Aches/Fatigue Close contact with a COVID-19 positive Pt in past 14-21 Days: No - Vaccine Status Have you recieved a Covid-19 vaccination: No - Review of Systems Constitutional: No Symptoms, No Fever, No Chills Eyes: No Symptoms Ears, Nose, & Throat: No Symptoms Respiratory: No Symptoms, No Cough, No Dyspnea Cardiac: No Symptoms, No Chest Pain, No Edema, No Syncope Abdominal/Gastrointestinal: No Symptoms, No Abdominal Pain, No Nausea, No Vomiting, No Diarrhea Genitourinary Symptoms: No Symptoms, No Dysuria Musculoskeletal: No Symptoms, No Back Pain, No Neck Pain Skin: No Symptoms, No Rash Neurological: No Symptoms, No Dizziness, No Focal Weakness, No Sensory Changes Psychological: No Symptoms Endocrine: No Symptoms Hematologic/Lymphatic: No Symptoms Immunological/Allergic: No Symptoms All Other Systems: Reviewed and Negative - Past Medical History Pertinent Past Medical History: Yes Neurological History: Migraines, Stroke Cardiac History: Hypertension Musculoskeletal History: Arthritis Psycho-Social History: Anxiety, Depression Other Medical History: SCIATIC NERVE PAIN - Past Surgical History Past Surgical History: Yes Musculoskeletal: Other Other Surgical History: finger graft - Social History Smoking Status: Current every day smoker How long have you smoked: 35 years Exposure to second hand smoke: Yes Drug Use: none Patient Lives Alone: No - Female History Hx Last Menstrual Period: 08/02/22 Hx Now: No - Nursing Vital Signs Nursing Vital Signs: Initial Vital Signs Temperature 98.9 F 08/08/22 02:48 Pulse Rate 89 08/08/22 02:48 Respiratory Rate 22 08/08/22 02:48 Blood Pressure 124/62 08/08/22 02:48 O2 Sat by Pulse Oximetry 97 08/08/22 02:48 Pain Scale Pain Intensity 10 - Physical Exam General Appearance: no apparent distress, alert Eye Exam: PERRL/EOMI, eyes nml inspection Ears, Nose, Throat Exam: normal ENT inspection, TMs normal, moist mucous membranes, pharyngeal erythema, other (Anterior cervical lymphadenopathy) Neck Exam: normal inspection, non-tender, supple, full range of motion Respiratory Exam: normal breath sounds, lungs clear, airway intact, No respiratory distress Cardiovascular Exam: regular rate/rhythm, normal heart sounds, normal peripheral pulses Gastrointestinal/Abdomen Exam: soft, normal bowel sounds, No tenderness, No mass Back Exam: normal inspection, normal range of motion, No CVA tenderness, No vertebral tenderness Extremity Exam: normal inspection, normal range of motion, pelvis stable Neurologic Exam: alert, oriented x 3, cooperative, normal mood/affect, nml cerebellar function, nml station & gait, sensation nml, No motor deficits Skin Exam: normal color, warm, dry, No rash Lymphatic Exam: No adenopathy SpO2: 97 - Course Nursing assessment & vital signs reviewed: Yes Ordered Tests: Medication Summary Generic Name Dose Route Start Last Admin Trade Name Freq PRN Reason Stop Dose Admin Clindamycin HCl 300 mg 08/08/22 03:05 Clindamycin Hcl 150 Mg Capsule PO 08/08/22 03:06 STAT ONE - Progress Progress: improved Progress Note: Patient has pharyngitis. Patient received a dose of Decadron and clindamycin p.o. Patient is comfortable at this time. No pain. Patient declines ad ditional pain medication. A prescription for clindamycin was forwarded to patient's pharmacy. Patient agrees to follow-up with primary care doctor within 48 hours for evaluation. Portions of this note were created with voice recognition technology. There may be grammatical, spelling, punctuation or sound alike errors 08/08/22 03:13 Counseled pt/family regarding: diagnosis, need for follow-up, rad results - Departure Departure Disposition: Home Clinical Impression: Pharyngitis Condition: Stable Critical Care Time: No Referrals: ANDRZEJ LORENZO [Primary Care Provider] - Follow up/PCP as directed Additional Instructions: Discharge/Care Plan KAREN CHAUHAN was seen on 08/08/22 in the Emergency Room. The patient was counseled regarding Diagnosis,Lab results, Imaging studies, need for follow up and when to return to the Emergency Room. Prescriptions given: Discharge Note I have spoken with the patient and/or caregivers. I have explained the patient's condition, diagnosis and treatment plan based on the information available to me at this time. I have answered the patient's and/or caregiver's questions and addressed any concerns. The patient and/or caregivers have as good understanding of the patient's diagnosis, condition and treatment plan as can be expected at this point. The vital signs have been stable. The patient's condition is stable and appropriate for discharge from the emergency department. The patient will pursue further outpatient evaluation with the primary care physician or other designated or consulting physician as outlined in the discharge instructions. The patient and/or caregivers are agreeable to this plan of care and follow-up instructions have been explained in detail. The patient and/or caregivers have received these instruction. The patient/and or caregivers are aware that any significant change in condition or worsening of symptoms should prompt an immediate return to this or the closest emergency department or call 911. Prescriptions: Clindamycin HCl 150 mg [Cleocin 150 mg Capsule] 2 cap PO QID #56 cap
== END 2022-08-08 03:17 | disposition home or self-care (01) ==
LOC: ED 02:41
DX: J02.9 Acute pharyngitis, unspecified (principal); H92.03 Otalgia, bilateral; I10 Essential (primary) hypertension; Z72.0 Tobacco use; Z79.899 Other long term (current) drug therapy; Z28.310 Unvaccinated for COVID-19
CPT/HCPCS: 96372; 99283; J1100; A9270-GY

== ENCOUNTER 2023-03-08 02:18 | Emergency (ER) | payer OTHER ==
[2023-03-08] MEDS ORDERED: Sterile H2O 10 ml IJ ONE (03:46)
[2023-03-08] MEDS ORDERED: solu-MEDROL ONE (03:47)
[2023-03-08] MEDS ORDERED: Rocephin 1000 MG INJ ONE (03:47)
[2023-03-08] MEDS ORDERED: HYDROCODONE-ACETAMIN 2.5-108/5 ML SOLUTION ONE (03:47)
[2023-03-08] MEDS ORDERED: XYLOCAINE 1% HCL 20 ML MDV ONE (03:48)
[2023-03-08 04:15] LABS: Group A Strep NEGATIVE (NEGATIVE); INFLUENZA A NEGATIVE (NEGATIVE); INFLUENZA B NEGATIVE (NEGATIVE); RESPIRATORY SYNCTIAL VIRUS NEGATIVE (NEGATIVE); SARS-CoV-2 Xpert Express NEGATIVE (NEGATIVE)
--- NOTE | 2023-03-08 09:14 | XRAY ---
Indication: Cough. Sore throat. Comparison: None Portable chest inflated and clear. Heart and mediastinal structures within normal limits. Bony thorax intact. Impression: Nonacute chest.
== END 2023-03-08 04:22 | disposition home or self-care (01) ==
LOC: ED 02:18
DX: J06.9 Acute upper respiratory infection, unspecified (principal); R05.1 Acute cough; I10 Essential (primary) hypertension; Z79.899 Other long term (current) drug therapy; Z72.0 Tobacco use
CPT/HCPCS: 0241U; 71045; 87651; 96372; 96374; 96375; 99284; J0696; J2930; A9270-GY

== ENCOUNTER 2023-03-27 02:13 | Emergency (ER) | payer OTHER ==
--- NOTE | 2023-03-27 02:45 | ERPHSYRPT ---
- History of Present Illness Time Seen by Provider: 03/27/23 02:20 Source: patient Exam Limitations: no limitations Physician History: This is an obese 47-year-old white female who is bit by an insect and went to [facility] over 12 hours ago before work today but did not fill the prescription that was written for her. Patient stated that she could not miss work and is here now desiring the first dose of clindamycin that was written for her to take. She would also like a pain pill. Timing/Duration: yesterday Quality: burning, painful Severity: mild Location: torso (Abdominal wall below the midline) Possible Causes: insect bite Associated Symptoms: denies symptoms Allergies/Adverse Reactions: Penicillins Allergy (Severe, Verified 03/27/23 02:17) swelling of throat Home Medications: Buspirone HCl 5 mg [Buspar 5 mg] 15 mg PO BID 10/12/21 [History] Gabapentin [Neurontin 400 MG] 600 mg PO TID 10/12/21 [History] Hydroxyzine HCl 50 mg/ml [Vistaril 50 MG/ML] 50 mg PO DAILY PRN 10/12/21 [History] Lisinopril 10 mg [Zestril 10 MG] 10 mg PO DAILY 01/02/22 [History] Rizatriptan Benzoate [Rizatriptan] 10 mg PO DAILY PRN 01/02/22 [History] Aripiprazole 10 mg [Abilify 10 MG] 2.5 mg PO DAILY 03/27/23 [History] Citalopram Hydrobromide [Celexa] 40 mg PO DAILY 03/27/23 [History] Hx Tetanus, Diphtheria Vaccination/Date Given: Yes Hx Influenza Vaccination/Date Given: No Hx Pneumococcal Vaccination/Date Given: No Travel Risk - International Travel Have you traveled outside of the country in past 3 weeks: No - Coronavirus Screening Are you exhibiting any of the following symptoms?: No Close contact with a COVID-19 positive Pt in past 14-21 Days: No - Vaccine Status Have you recieved a Covid-19 vaccination: No - Review of Systems Constitutional: No Symptoms Eyes: No Symptoms Ears, Nose, & Throat: No Symptoms Respiratory: No Symptoms Cardiac: No Symptoms Abdominal/Gastrointestinal: No Symptoms Genitourinary Symptoms: No Symptoms Musculoskeletal: No Symptoms Skin: Cellulitis (Infraumbilical open area where insect bite occurred) Neurological: No Symptoms Psychological: No Symptoms Endocrine: No Symptoms Hematologic/Lymphatic: No Symptoms Immunological/Allergic: No Symptoms All Other Systems: Reviewed and Negative - Past Medical History Pertinent Past Medical History: Yes Neurological History: Migraines, Stroke Cardiac History: Hypertension Musculoskeletal History: Arthritis Psycho-Social History: Anxiety, Depression Other Medical History: SCIATIC NERVE PAIN - Past Surgical History Past Surgical History: Yes Musculoskeletal: Other Other Surgical History: finger graft - Social History Smoking Status: Current every day smoker How long have you smoked: 35 years Exposure to second hand smoke: Yes Drug Use: none Patient Lives Alone: No - Physical Exam General Appearance: no apparent distress, alert, obese Eye Exam: PERRL/EOMI, eyes nml inspection Ears, Nose, Throat Exam: normal ENT inspection, moist mucous membranes Neck Exam: normal inspection, non-tender, supple, full range of motion Respiratory Exam: airway intact, No chest tenderness, No respiratory distress Gastrointestinal/Abdomen Exam: soft, normal bowel sounds, tenderness (In the area of infraumbilical cellulitis with central insect bite site), No guarding, No rebound Pelvic Exam: not done Rectal Exam: not done Back Exam: normal inspection, normal range of motion, No CVA tenderness, No vertebral tenderness Extremity Exam: normal inspection, normal range of motion, pelvis stable Neurologic Exam: alert, oriented x 3, cooperative, siderographist II-XII nml as tested, normal mood/affect, nml cerebellar function, nml station & gait, sensation nml Skin Exam: other (Infraumbilical cellulitis with a central bite site.) Lymphatic Exam: No adenopathy SpO2 Interpretation: normal O2 Delivery: Room Air - Course Nursing assessment & vital signs reviewed: Yes - Progress Progress: unchanged Progress Note: 03/27/23 02:44 This patient's medical issue is 1 of low complexity. The patient was seen at [facility] and given a prescription for clindamycin. She did not picker tender her prescription although was written for over 12 hours ago. Counseled pt/family regarding: diagnosis, need for follow-up Medical Desision Making - Diagnostic Testing Diagnostic test were ordered, analyzed, and reviewed by me: No - Risk of complications Low Risk: Low risk of morbidity from additional dx testing or treatment - Departure Departure Disposition: Home Clinical Impression: Cellulitis, abdominal wall Condition: Stable Critical Care Time: No Referrals: ANDRZEJ LORENZO [Primary Care Provider] - Follow up/PCP as directed Additional Instructions: Keep the site clean daily with soap and water. Do not cover with lotions ointments or creams. Cover with a nonstick bandage. Fill the prescription of clindamycin that was written for you and take all the medication as prescribed. Use Tylenol and ibuprofen for pain control. Follow-up with your primary care physician for persistent symptoms.
[2023-03-27] MEDS ORDERED: CLEOCIN 150 MG CAPSULE PO ONE (02:46)
[2023-03-27] MEDS ORDERED: NORCO 5/325 MG PO ONE (02:47)
[2023-03-27] MEDS ORDERED: CLEOCIN 150 MG CAPSULE ONE (02:53)
[2023-03-27] MEDS ORDERED: NORCO 5/325 MG ONE (02:54)
[2023-03-27 03:03] VITALS: BP 102/57; PULSE 105; O2SAT 98
== END 2023-03-27 03:19 | disposition home or self-care (01) ==
LOC: ED 02:13
DX: S30.861A Insect bite (nonvenomous) of abdominal wall, initial encounter (principal); L03.311 Cellulitis of abdominal wall; I10 Essential (primary) hypertension; Z79.899 Other long term (current) drug therapy; Z28.310 Unvaccinated for COVID-19; Z72.0 Tobacco use
CPT/HCPCS: 99282; A9270-GY

== ENCOUNTER 2023-06-17 21:46 | Emergency (ER) | payer OTHER ==
[2023-06-17 21:57] VITALS: TEMP 98.2
[2023-06-17 23:13] VITALS: RESP 18
[2023-06-17 23:16] LABS: Absolute Neutrophil Ct (ANC) 3.52 x10^3/uL (1.4-6.9); BASOPHIL % 0.6 % (0.0-0.4); Basophil (Absolute #) 0.04 x10^3/uL (0-0.4); Eosinophil % 1.5 % (0.00-5.0); Hematocrit 39.2 % (35-47); Hemoglobin 12.7 g/dL (12.0-16.0); IMMATURE GRAN # 0.01 x10^3u/L (0.00-0.03); IMMATURE GRAN % 0.2 % (0.00-0.4); Lymphocyte (Absolute #) 2.41 x10^3/uL (1.0-4.6); Lymphocytes % 36.2 % (24.0-44.0); Mean Cell Volume 90.1 fL (78-100); Mean Corpuscular Hemoglobin 29.2 pg (26-32); Mean Corpuscular Hgb Concent. 32.4 g/dL (32-36); Mean Platelet Volume 11.1 fL (7.5-11.0); Monocyte (Absolute #) 0.57 x10^3/uL (0.0-1.3); Monocytes % 8.6 % (0.0-12.0); Neutrophil % 52.9 % (36.0-66.0); Platelet Count 216 x10^3/uL (150-450); Red Blood Count 4.35 x10^6/uL (4.1-5.4); Red Cell Distribution Width 13.9 % (11.5-14.0); White Blood Count 6.7 x10^3/uL (4.0-10.5)
--- NOTE | 2023-06-17 23:17 | ERPHSYRPT ---
- History of Present Illness Source: patient Exam Limitations: no limitations Patient Subjective Stated Complaint: bilateral lower leg swelling, pain, redness x 1 week Triage Nursing Assessment: Pt presents to ED A &O x3, ambulates to bed 8 without difficulty. Placed on monitor, answers questions appropriately. C/o bilateral lower extremity swelling and redness x 1 week. C/o pain 10/10. Pedal pulse 2+ bilaterally. PMS intact. Denies shortness of breath. Skin PWD. Redness noted to legs from just below bilateral knees down to toes. Edema noted to feet bilaterally. Pt does have ankle monitor noted to R ankle but it not compromising circulation. 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 Physician History: 47 yo Wf w worsening B LE edema w increasing erythema x1 week. Pt states that her pain is a 10. She denies fever/injury/chest pain/dyspnea. Method of Injury: unknown Occurred: other (1 week) Quality: constant, burning Severity of Pain-Max: severe Severity of Pain-Current: severe Lower Extremities Pain: leg: bilateral Modifying Factors: Improves With: movement Associated Symptoms: none Allergies/Adverse Reactions: Penicillins Allergy (Severe, Verified 06/17/23 21:57) swelling of throat Home Medications: Buspirone HCl 5 mg [Buspar 5 mg] 15 mg PO BID 10/12/21 [History] Gabapentin [Neurontin 400 MG] 600 mg PO TID 10/12/21 [History] Hydroxyzine HCl 50 mg/ml [Vistaril 50 MG/ML] 50 mg PO DAILY PRN 10/12/21 [History] Lisinopril 10 mg [Zestril 10 MG] 10 mg PO DAILY 01/02/22 [History] Rizatriptan Benzoate [Rizatriptan] 10 mg PO DAILY PRN 01/02/22 [History] Aripiprazole 10 mg [Abilify 10 MG] 2.5 mg PO DAILY 03/27/23 [History] Citalopram Hydrobromide [Celexa] 40 mg PO DAILY 03/27/23 [History] Furosemide [Lasix] 1 tablet PO DAILY 06/17/23 [History] Hx Tetanus, Diphtheria Vaccination/Date Given: Yes Hx Influenza Vaccination/Date Given: No Hx Pneumococcal Vaccination/Date Given: No Travel Risk - International Travel Have you traveled outside of the country in past 3 weeks: No - Coronavirus Screening Are you exhibiting any of the following symptoms?: No Close contact with a COVID-19 positive Pt in past 14-21 Days: No - Vaccine Status Have you recieved a Covid-19 vaccination: No - Review of Systems Constitutional: No Symptoms Eyes: No Symptoms Ears, Nose, & Throat: No Symptoms Respiratory: No Symptoms Cardiac: No Symptoms Abdominal/Gastrointestinal: No Symptoms Genitourinary Symptoms: No Symptoms Skin: No Symptoms, Rash Neurological: No Symptoms Psychological: No Symptoms Endocrine: No Symptoms Hematologic/Lymphatic: No Symptoms Immunological/Allergic: No Symptoms - Past Medical History Pertinent Past Medical History: Yes Neurological History: Migraines, Stroke ENT History: No Pertinent History Cardiac History: Hypertension Respiratory History: No Pertinent History Endocrine Medical History: No Pertinent History Musculoskeletal History: Arthritis GI Medical History: No Pertinent History History: No Pertinent History Psycho-Social History: Anxiety, Depression Female Reproductive Disorders: No Pertinent History Other Medical History: SCIATIC NERVE PAIN - Past Surgical History Past Surgical History: Yes Neuro Surgical History: No Pertinent History Cardiac: No Pertinent History Respiratory: No Pertinent History Gastrointestinal: Cholecystectomy Genitourinary: No Pertinent History Musculoskeletal: Other Female Surgical History: No Pertinent History Other Surgical History: finger graft - Social History Smoking Status: Current every day smoker How long have you smoked: 35 years Exposure to second hand smoke: Yes Drug Use: none Patient Lives Alone: No - Female History Hx Last Menstrual Period: 05/21/23 Hx Now: No - Nursing Vital Signs Nursing Vital Signs: Initial Vital Signs Temperature 98.2 F 06/17/23 21:52 Pulse Rate 69 06/17/23 21:52 Respiratory Rate 16 06/17/23 21:52 Blood Pressure 145/90 06/17/23 21:52 O2 Sat by Pulse Oximetry 97 06/17/23 21:52 Pain Scale Pain Intensity 5 Hypertensive - Physical Exam General Appearance: no apparent distress Eyes, Ears, Nose, Throat Exam: normal ENT inspection, TMs normal, pharynx normal, moist mucous membranes Neck Exam: normal inspection, non-tender, supple, full range of motion, No Brudzinski, No Kernig's, No meningismus, No carotid bruit Cardiovascular/Respiratory Exam: normal breath sounds, regular rate/rhythm, hear t sounds normal Gastrointestinal/Abdominal Exam: non-tender, soft Back Exam: normal inspection, normal range of motion, No CVA tenderness, No vertebral tenderness Hips Exam: bilateral: non-tender, normal inspection, normal range of motion, no evidence of injury Legs Exam: bilateral leg: other (B pre-tibial edema/erythema/Good pedal pulse, distal sensation, and capillary return) Knees Exam: bilateral knee: non-tender, normal inspection, normal range of motion, no evidence of injury Ankle Exam: bilateral ankle: non-tender, normal inspection, normal range of motion, no evidence of injury Foot Exam: bilateral foot: non-tender, normal inspection, normal range of motion, no evidence of injury Neuro/Tendon Exam: normal sensation, normal motor functions, normal tendon functions, responds to pain, no evidence tendon injury, No motor deficit, No sensory deficit Mental Status Exam: alert, oriented x 3, cooperative Skin Exam: other (Erythema B pretibial areas) SpO2 Interpretation: normal SpO2: 97 O2 Delivery: Room Air - Course Nursing assessment & vital signs reviewed: Yes - Radiology Ultrasound Exam Venous Lower Extremity Ultrasound: Other (Neg per tech) Ordered Tests: Active Orders 24 hr Category Date Time Status EKG-ER Only STAT Care 06/17/23 22:27 Completed VENOUS BILATERAL EXTREMITY [US] Stat Exams 06/18/23 00:27 Taken CBC W DIFF Stat Lab 06/17/23 22:45 Completed CMP Stat Lab 06/17/23 22:45 Completed D-DIMER QUANTITATIVE Stat Lab 06/17/23 22:45 Completed Lactic Acid Stat Lab 06/17/23 22:48 Completed NT PRO BNPII Stat Lab 06/17/23 22:45 Completed TROPONIN Q4H Lab 06/17/23 22:45 Completed Medication Summary Discontinued Medications Generic Name Dose Route Start Last Admin Trade Name Freq PRN Reason Stop Dose Admin Doxycycline Hyclate 100 mg 06/18/23 00:48 06/18/23 00:52 Doxycycline Hyclate 100 Mg Tablet PO 06/18/23 00:49 100 mg STAT ONE Administration Doxycycline Hyclate Confirm 06/18/23 00:51 Doxycycline Hyclate 100 Mg Tablet Administered 06/18/23 00:52 Dose 100 mg .ROUTE .[id number]-MED ONE Lab/Rad Data: Laboratory Result Diagrams 06/17/23 22:45 06/17/23 22:45 Laboratory Results 06/17/23 06/17/23 06/17/23 Range/Units 22:48 22:45 22:45 WBC (4.0-10.5) x10^3/uL RBC (4.1-5.4) x10^6/uL Hgb (12.0-16.0) g/dL Hct (35-47) % MCV (78-100) fL MCH (26-32) pg MCHC (32-36) g/dL RDW (11.5-14.0) % Plt Count (150-450) x10^3/uL MPV (7.5-11.0) fL Gran % (36.0-66.0) % Immature Gran % (Auto) (0.00-0.4) % Nucleat RBC Rel Count (0.00-0.1) % Eos # (Auto) (0-0.5) x10^3/uL Immature Gran # (Auto) (0.00-0.03) x10^3u/L Absolute Lymphs (auto) (1.0-4.6) x10^3/uL Absolute Monos (auto) (0.0-1.3) x10^3/uL Absolute Nucleated RBC (0.00-0.01) x10^3u/L Lymphocytes % (24.0-44.0) % Monocytes % (0.0-12.0) % Eosinophils % (0.00-5.0) % Basophils % (0.0-0.4) % Absolute Granulocytes (1.4-6.9) x10^3/uL Basophils # (0-0.4) x10^3/uL D-Dimer 0.72 H* (0.0-0.50) mg/L Sodium (137-145) mmol/L Potassium (3.5-5.1) mmol/L Chloride (98-107) mmol/L Carbon Dioxide (22-30) mmol/L Anion Gap (5-15) MEQ/L BUN (7-17) mg/dL Creatinine (0.52-1.04) mg/dL Estimated GFR ML/MIN Glucose (74-106) mg/dL Lactic Acid 1.3 (0.4-2.0) Calcium (8.4-10.2) mg/dL Total Bilirubin (0.2-1.3) mg/dL AST (14-36) U/L ALT (0-35) U/L Alkaline Phosphatase (38-126) U/L Troponin I < 0.012 (0.000-0.034) ng/mL NT-Pro-B Natriuret Pep (<300) pg/mL Serum Total Protein (6.3-8.2) g/dL Albumin (3.5-5.0) g/dL 06/17/23 06/17/23 Range/Units 22:45 22:45 WBC 6.7 (4.0-10.5) x10^3/uL RBC 4.35 (4.1-5.4) x10^6/uL Hgb 12.7 (12.0-16.0) g/dL Hct 39.2 (35-47) % MCV 90.1 (78-100) fL MCH 29.2 (26-32) pg MCHC 32.4 (32-36) g/dL RDW 13.9 (11.5-14.0) % Plt Count 216 (150-450) x10^3/uL MPV 11.1 H (7.5-11.0) fL Gran % 52.9 (36.0-66.0) % Immature Gran % (Auto) 0.2 (0.00-0.4) % Nucleat RBC Rel Count 0.0 (0.00-0.1) % Eos # (Auto) 0.10 (0-0.5) x10^3/uL Immature Gran # (Auto) 0.01 (0.00-0.03) x10^3u/L Absolute Lymphs (auto) 2.41 (1.0-4.6) x10^3/uL Absolute Monos (auto) 0.57 (0.0-1.3) x10^3/uL Absolute Nucleated RBC 0.00 (0.00-0.01) x10^3u/L Lymphocytes % 36.2 (24.0-44.0) % Monocytes % 8.6 (0.0-12.0) % Eosinophils % 1.5 (0.00-5.0) % Basophils % 0.6 (0.0-0.4) % Absolute Granulocytes 3.52 (1.4-6.9) x10^3/uL Basophils # 0.04 (0-0.4) x10^3/uL D-Dimer (0.0-0.50) mg/L Sodium 138 (137-145) mmol/L Potassium 4.0 (3.5-5.1) mmol/L Chloride 102 (98-107) mmol/L Carbon Dioxide 31 H (22-30) mmol/L Anion Gap 9.6 (5-15) MEQ/L BUN 10 (7-17) mg/dL Creatinine 0.75 (0.52-1.04) mg/dL Estimated GFR > 60.0 ML/MIN Glucose 92 (74-106) mg/dL Lactic Acid (0.4-2.0) Calcium 9.2 (8.4-10.2) mg/dL Total Bilirubin 0.30 (0.2-1.3) mg/dL AST 26 (14-36) U/L ALT 35 (0-35) U/L Alkaline Phosphatase 89 (38-126) U/L Troponin I (0.000-0.034) ng/mL NT-Pro-B Natriuret Pep 146 (<300) pg/mL Serum Total Protein 6.7 (6.3-8.2) g/dL Albumin 3.9 (3.5-5.0) g/dL - Progress Progress Note: 06/18/23 01:42 Nursing note and vital signs reviewed No food or housing insecurities noted All lab results reviewed and shared w pt US results reviewed and shared w pt Pt's labs/VS's wnl, so will treat as an outpt 100mg po Doxcycline Pt advised to continue Lasix 40mg po bid Counseled pt/family regarding: lab results, diagnosis, need for follow-up, rad results Medical Desision Making - Diagnostic Testing Radiological Interpretation: Reviewed by me (Report per tech orally) - Risk of complications The pt has a mod risk of morbidity or mortality based on: Need for prescription drug management - Departure Departure Disposition: Home Clinical Impression: Cellulitis Condition: Stable Critical Care Time: No Referrals: ANDRZEJ LORENZO [Primary Care Provider] - Follow up/PCP as directed Instructions: Dependent Edema (DC), Cellulitis (Skin Infection), Adult (DC) Additional Instructions: Start Doxycycline twice a day for 10 days Elevate legs Continue Lasix twice a day for 10 days Follow up with your family MD in 1-2 days Return to ER for increasing redness/swelling/pain Prescriptions: Doxycycline Monohydrate 100 mg PO BID 10 Days #20 cap
[2023-06-17 23:44] LABS: ALBUMIN 3.9 g/dL (3.5-5.0); ALKALINE PHOSPHATASE 89 U/L (38-126); ANION GAP 9.6 MEQ/L (5-15); BLOOD UREA NITROGEN 10 mg/dL (7-17); CHLORIDE 102 mmol/L (98-107); Calcium 9.2 mg/dL (8.4-10.2); Carbon Dioxide 31 mmol/L (22-30); Creatinine 1 0.75 mg/dL (0.52-1.04); EST GLOMERULAR FILTRATION RATE > 60.0 ML/MIN; Glucose 92 mg/dL (74-106); NT PRO BNPII 146 pg/mL (<300); SGOT/AST 26 U/L (14-36); SGPT/ALT 35 U/L (0-35); SODIUM 138 mmol/L (137-145); Total Protein 6.7 g/dL (6.3-8.2)
[2023-06-18] MEDS ORDERED: Vibramycin 100 MG PO ONE (00:48)
[2023-06-18] MEDS ORDERED: Vibramycin 100 MG ONE (00:51)
[2023-06-18 01:34] VITALS: BP 140/65; PULSE 65
[2023-06-18 01:46] VITALS: O2SAT 97
--- NOTE | 2023-06-18 08:33 | XRAY ---
Indication: Elevated d-dimer. Two-dimensional sonogram and color Doppler imaging of the major venous vessels of the left and right leg performed. Comparison: None No thrombus seen in the examined deep venous vessels of the left and right leg including greater saphenous vein. Veins demonstrate normal compressibility. Venous waveforms are normal with and without augmentation. Impression: Left and right leg negative for DVT.
== END 2023-06-18 01:36 | disposition home or self-care (01) ==
LOC: ED 21:46
DX: L03.116 Cellulitis of left lower limb (principal); L03.115 Cellulitis of right lower limb; M79.89 Other specified soft tissue disorders; I10 Essential (primary) hypertension; Z79.899 Other long term (current) drug therapy; Z28.310 Unvaccinated for COVID-19; Z72.0 Tobacco use
CPT/HCPCS: 36415; 80053; 83605; 83880; 84484; 85025; 85379; 93005; 93970; 99284; A9270-GY

== ENCOUNTER 2023-08-05 11:00 | Emergency (ER) | payer OTHER ==
[2023-08-05 11:36] VITALS: BP 155/74; TEMP 98.2
[2023-08-05 11:51] VITALS: O2SAT 95
[2023-08-05 12:07] LABS: Absolute Neutrophil Ct (ANC) 3.69 x10^3/uL (1.4-6.9); BASOPHIL % 0.5 % (0.0-0.4); Basophil (Absolute #) 0.03 x10^3/uL (0-0.4); Eosinophil % 1.2 % (0.00-5.0); Eosinophil (Absolute #) 0.07 x10^3/uL (0-0.5); Hematocrit 42.6 % (35-47); Hemoglobin 13.8 g/dL (12.0-16.0); IMMATURE GRAN # 0.02 x10^3u/L (0.00-0.03); IMMATURE GRAN % 0.4 % (0.00-0.4); Lymphocyte (Absolute #) 1.52 x10^3/uL (1.0-4.6); Lymphocytes % 26.8 % (24.0-44.0); Mean Cell Volume 89.7 fL (78-100); Mean Corpuscular Hemoglobin 29.1 pg (26-32); Mean Corpuscular Hgb Concent. 32.4 g/dL (32-36); Mean Platelet Volume 10.6 fL (7.5-11.0); Monocyte (Absolute #) 0.35 x10^3/uL (0.0-1.3); Monocytes % 6.2 % (0.0-12.0); Neutrophil % 64.9 % (36.0-66.0); Platelet Count 242 x10^3/uL (150-450); Red Blood Count 4.75 x10^6/uL (4.1-5.4); Red Cell Distribution Width 13.7 % (11.5-14.0); White Blood Count 5.7 x10^3/uL (4.0-10.5)
[2023-08-05 12:12] VITALS: PULSE 57; RESP 12
--- NOTE | 2023-08-05 12:12 | XRAY ---
Indication: Edema/swelling. Comparison: March 08, 2023 Portable chest now demonstrates minimal left base subsegmental atelectasis/scarring. Remaining heart, lungs, and bony thorax normal.
[2023-08-05 12:21] LABS: ALKALINE PHOSPHATASE 92 U/L (38-126); ANION GAP 8.9 MEQ/L (5-15); BLOOD UREA NITROGEN 8 mg/dL (7-17); CHLORIDE 104 mmol/L (98-107); Calcium 8.8 mg/dL (8.4-10.2); Carbon Dioxide 30 mmol/L (22-30); EST GLOMERULAR FILTRATION RATE > 60.0 ML/MIN; Glucose 130 mg/dL (74-106); Potassium 3.5 mmol/L (3.5-5.1); SGOT/AST 30 U/L (14-36); SGPT/ALT 28 U/L (0-35); SODIUM 139 mmol/L (137-145)
[2023-08-05 12:30] LABS: INR 1.01 (0.8-3.0); PTT 25.6 SECONDS (25.1-36.5)
[2023-08-05 12:39] LABS: D-DIMER QUANTITATIVE 0.79 mg/L (0.0-0.50)
--- NOTE | 2023-08-05 13:20 | XRAY ---
Indication: Edema. Elevated d-dimer. Two-dimensional sonogram and color Doppler imaging of the major venous vessels of the left and right leg performed. Comparison: June 18, 2023. No thrombus seen in the examined deep venous vessels of the left and right leg including greater saphenous veins. Veins demonstrate normal compressibility. Venous waveforms are normal with and without augmentation. Impression: Left and right legs continue to be negative for DVT compared to ER exam last month.
--- NOTE | 2023-08-05 13:39 | ERPHSYRPT ---
- History of Present Illness Source: patient Exam Limitations: other (Poor historian) Patient Subjective Stated Complaint: C/O redness, swelling, pain to BLE for approx 3 weeks. Triage Nursing Assessment: Patient brought back to ER in W/C. She is alert and oriented. No SOB. BLE are red, warm, swollen. Skin to BLE is tight. Pedal pulses present. DALI CORTEZ. Physician History: 48 yo WF w BLE edema/erythema x 3 wks. Pt was seen in the on 06/17/23 w neg labs/venous doppler BLE's. She was started on Doxycycline, and she later states that she followed up in clinic and was treated w Bactrim. She denies chest pain/dyspnea/fever/injury. Method of Injury: unknown Occurred: other (3 wks) Quality: aching Severity of Pain-Max: moderate Severity of Pain-Current: mild Lower Extremities Pain: leg: left Modifying Factors: Improves With: movement (Gets worse at end of work day) Associated Symptoms: none Allergies/Adverse Reactions: Penicillins Allergy (Severe, Verified 08/05/23 11:24) swelling of throat Home Medications: Buspirone HCl 5 mg [Buspar 5 mg] 15 mg PO BID 10/12/21 [History] Lisinopril 10 mg [Zestril 10 MG] 10 mg PO DAILY 01/02/22 [History] Citalopram Hydrobromide [Celexa] 40 mg PO DAILY 03/27/23 [History] Furosemide [Lasix] 1 tablet PO DAILY 06/17/23 [History] ARIPiprazole [Aripiprazole] 1 tab PO DAILY 08/05/23 [History] Buprenorphine HCl/Naloxone HCl [Suboxone 8 mg-2 mg Sl Film] 1 film PO BID 08/05/23 [History] Cholestyramine Light 4 gm [QUESTRAN Light 4 GM Packet] 4 g PO BID 08/05/23 [History] Gabapentin [Neurontin] 1 cap PO TID 08/05/23 [History] Ibuprofen 1 tab PO TID PRN 08/05/23 [History] Potassium Chloride 1 cap PO DAILY 08/05/23 [History] Rizatriptan Benzoate [Rizatriptan] 1 tab PO DAILY PRN 08/05/23 [History] hydrOXYzine HCL [Hydroxyzine HCl] 1 tab PO TID PRN 08/05/23 [History] lamoTRIgine [Lamotrigine] 1 tab PO DAILY 08/05/23 [History] Hx Tetanus, Diphtheria Vaccination/Date Given: Yes Hx Influenza Vaccination/Date Given: No Hx Pneumococcal Vaccination/Date Given: No Immunizations Up to Date: Yes Travel Risk - International Travel Have you traveled outside of the country in past 3 weeks: No - Coronavirus Screening Are you exhibiting any of the following symptoms?: No Close contact with a COVID-19 positive Pt in past 14-21 Days: No - Vaccine Status Have you recieved a Covid-19 vaccination: No - Review of Systems Constitutional: No Symptoms Eyes: No Symptoms Ears, Nose, & Throat: No Symptoms Respiratory: No Symptoms Cardiac: No Symptoms Abdominal/Gastrointestinal: No Symptoms Genitourinary Symptoms: No Symptoms Musculoskeletal: Myalgias Skin: Cellulitis Neurological: No Symptoms Psychological: No Symptoms Endocrine: No Symptoms Hematologic/Lymphatic: No Symptoms Immunological/Allergic: No Symptoms - Past Medical History Pertinent Past Medical History: Yes Neurological History: Migraines, Stroke ENT History: No Pertinent History Cardiac History: Hypertension Respiratory History: No Pertinent History Endocrine Medical History: No Pertinent History Musculoskeletal History: Arthritis GI Medical History: No Pertinent History History: No Pertinent History Psycho-Social History: Anxiety, Depression Female Reproductive Disorders: No Pertinent History Other Medical History: SCIATIC NERVE PAIN - Past Surgical History Past Surgical History: Yes Neuro Surgical History: No Pertinent History Cardiac: No Pertinent History Respiratory: No Pertinent History Gastrointestinal: Cholecystectomy Genitourinary: No Pertinent History Musculoskeletal: Other Female Surgical History: No Pertinent History Other Surgical History: finger graft - Social History Smoking Status: Current every day smoker How long have you smoked: 35 years Exposure to second hand smoke: Yes Drug Use: none Patient Lives Alone: No - Female History Hx Last Menstrual Period: Last month Hx Now: No - Nursing Vital Signs Nursing Vital Signs: Initial Vital Signs Temperature 98.2 F 08/05/23 11:20 Pulse Rate 74 08/05/23 11:20 Respiratory Rate 18 08/05/23 11:20 Blood Pressure 155/74 08/05/23 11:20 O2 Sat by Pulse Oximetry 98 08/05/23 11:20 Pain Scale Pain Intensity 8 Hypertensive - Physical Exam General Appearance: no apparent distress Eyes, Ears, Nose, Throat Exam: normal ENT inspection, TMs normal, pharynx normal, moist mucous membranes Neck Exam: normal inspection, non-tender, supple, full range of motion, No Brudzinski, No Kernig's, No meningismus, No carotid bruit Cardiovascular/Respiratory Exam: normal breath sounds, regular rate/rhythm, heart sounds normal Gastrointestinal/Abdominal Exam: non-tender, soft Back Exam: normal inspection, normal range of motion Hips Exam: bilateral: non-tender, normal inspection, normal range of motion, no evidence of injury Legs Exam: bilateral leg: swelling (Mild pre-tibial edema B w mild erythema B/Good pedal pulse, distal sensation, and capillary return B) Knees Exam: bilateral knee: non-tender, normal inspection, normal range of motion, no evidence of injury Ankle Exam: bilateral ankle: swelling (Mild B w mild erythema) Foot Exam: bilateral foot: non-tender, swelling (Mild B edema) Neuro/Tendon Exam: normal sensation, normal motor functions, normal tendon functions, responds to pain, no evidence tendon injury, No motor deficit, No sensory deficit Mental Status Exam: alert, oriented x 3, cooperative Skin Exam: other (Mild BLE erythema) SpO2 Interpretation: normal SpO2: 95 O2 Delivery: Room Air - Course Nursing assessment & vital signs reviewed: Yes - Radiology Ultrasound Exam Venous Lower Extremity Ultrasound: discussed w/radiologist (No DVT B) Ordered Tests: Active Orders 24 hr Category Date Time Status CHEST 1 VIEW (PORTABLE) Stat Exams 08/05/23 11:49 Completed VENOUS BILATERAL EXTREMITY [US] Stat Exams 08/05/23 12:48 Completed CBC W DIFF Stat Lab 08/05/23 12:00 Completed CMP Stat Lab 08/05/23 12:00 Completed D-DIMER QUANTITATIVE Stat Lab 08/05/23 12:00 Completed Lactic Acid Stat Lab 08/05/23 12:00 Completed NT PRO BNPII Stat Lab 08/05/23 12:00 Completed PROTIME WITH INR Stat Lab 08/05/23 12:00 Completed PTT Stat Lab 08/05/23 12:00 Completed Lab/Rad Data: Laboratory Result Diagrams 08/05/23 12:00 08/05/23 12:00 Laboratory Results 08/05/23 08/05/23 08/05/23 Range/Units 12:00 12:00 12:00 WBC (4.0-10.5) x10^3/uL RBC (4.1-5.4) x10^6/uL Hgb (12.0-16.0) g/dL Hct (35-47) % MCV (78-100) fL MCH (26-32) pg MCHC (32-36) g/dL RDW (11.5-14.0) % Plt Count (150-450) x10^3/uL MPV (7.5-11.0) fL Gran % (36.0-66.0) % Immature Gran % (Auto) (0.00-0.4) % Nucleat RBC Rel Count (0.00-0.1) % Eos # (Auto) (0-0.5) x10^3/uL Immature Gran # (Auto) (0.00-0.03) x10^3u/L Absolute Lymphs (auto) (1.0-4.6) x10^3/uL Absolute Monos (auto) (0.0-1.3) x10^3/uL Absolute Nucleated RBC (0.00-0.01) x10^3u/L Lymphocytes % (24.0-44.0) % Monocytes % (0.0-12.0) % Eosinophils % (0.00-5.0) % Basophils % (0.0-0.4) % Absolute Granulocytes (1.4-6.9) x10^3/uL Basophils # (0-0.4) x10^3/uL PT 11.0 (9.4-12.5) SECONDS INR 1.01 (0.8-3.0) APTT 25.6 (25.1-36.5) SECONDS D-Dimer 0.79 H* (0.0-0.50) mg/L Sodium (137-145) mmol/L Potassium (3.5-5.1) mmol/L Chloride (98-107) mmol/L Carbon Dioxide (22-30) mmol/L Anion Gap (5-15) MEQ/L BUN (7-17) mg/dL Creatinine (0.52-1.04) mg/dL Estimated GFR ML/MIN Glucose (74-106) mg/dL Lactic Acid 1.9 (0.4-2.0) Calcium (8.4-10.2) mg/dL Total Bilirubin (0.2-1.3) mg/dL AST (14-36) U/L ALT (0-35) U/L Alkaline Phosphatase (38-126) U/L NT-Pro-B Natriuret Pep 115 (<300) pg/mL Serum Total Protein (6.3-8.2) g/dL Albumin (3.5-5.0) g/dL 08/05/23 08/05/23 Range/Units 12:00 12:00 WBC 5.7 (4.0-10.5) x10^3/uL RBC 4.75 (4.1-5.4) x10^6/uL Hgb 13.8 (12.0-16.0) g/dL Hct 42.6 (35-47) % MCV 89.7 (78-100) fL MCH 29.1 (26-32) pg MCHC 32.4 (32-36) g/dL RDW 13.7 (11.5-14.0) % Plt Count 242 (150-450) x10^3/uL MPV 10.6 (7.5-11.0) fL Gran % 64.9 (36.0-66.0) % Immature Gran % (Auto) 0.4 (0.00-0.4) % Nucleat RBC Rel Count 0.0 (0.00-0.1) % Eos # (Auto) 0.07 (0-0.5) x10^3/uL Immature Gran # (Auto) 0.02 (0.00-0.03) x10^3u/L Absolute Lymphs (auto) 1.52 (1.0-4.6) x10^3/uL Absolute Monos (auto) 0.35 (0.0-1.3) x10^3/uL Absolute Nucleated RBC 0.00 (0.00-0.01) x10^3u/L Lymphocytes % 26.8 (24.0-44.0) % Monocytes % 6.2 (0.0-12.0) % Eosinophils % 1.2 (0.00-5.0) % Basophils % 0.5 (0.0-0.4) % Absolute Granulocytes 3.69 (1.4-6.9) x10^3/uL Basophils # 0.03 (0-0.4) x10^3/uL PT (9.4-12.5) SECONDS INR (0.8-3.0) APTT (25.1-36.5) SECONDS D-Dimer (0.0-0.50) mg/L Sodium 139 (137-145) mmol/L Potassium 3.5 (3.5-5.1) mmol/L Chloride 104 (98-107) mmol/L Carbon Dioxide 30 (22-30) mmol/L Anion Gap 8.9 (5-15) MEQ/L BUN 8 (7-17) mg/dL Creatinine 0.60 (0.52-1.04) mg/dL Estimated GFR > 60.0 ML/MIN Glucose 130 H (74-106) mg/dL Lactic Acid (0.4-2.0) Calcium 8.8 (8.4-10.2) mg/dL Total Bilirubin 0.40 (0.2-1.3) mg/dL AST 30 (14-36) U/L ALT 28 (0-35) U/L Alkaline Phosphatase 92 (38-126) U/L NT-Pro-B Natriuret Pep (<300) pg/mL Serum Total Protein 7.0 (6.3-8.2) g/dL Albumin 4.0 (3.5-5.0) g/dL - Progress Progress Note: 08/05/23 14:37 Nursing notye and vital signs reviewed No food or housing insecurities noted All lab results reviewed and shared w pt US results reviewed and shared w pt Pt has dependent edema and mild B pre-tibial cellulitis vs venous stasis changes. Pt does not meet criteria for admit at this time, so will start Clindamycin 300mg po BID x1 week and Keflex 500mg po TID x1wk. Pt also advised to elevate legs and to increase Lasix to 40mg po daily. also advised to f/u w Dr. Zhang. Counseled pt/family regarding: lab results, diagnosis, need for follow-up, rad results Medical Desision Making - Diagnostic Testing Radiological Interpretation: Reviewed by me - Risk of complications The pt has a mod risk of morbidity or mortality based on: Need for prescription drug management - Departure Departure Disposition: Home Clinical Impression: Cellulitis, Edema Condition: Stable Critical Care Time: No Referrals: ANDRZEJ RODRIGES [Primary Care Provider] - Follow up/PCP as directed Instructions: Cellulitis and erysipelas (skin infections), Dependent Edema (DC) Additional Instructions: Elevate legs Increase Lasix to 40mg daily Clindamycin 300mg twice a day for 1 week Keflex three times a day for 1 week Follow up with Dr. Rodriges in 1-2 days Return to ER for worsening of condition Forms: Work/School Release Form Prescriptions: clindamycin HCL [Clindamycin HCl] 300 mg PO BID 7 Days #14 cap Cephalexin Mh 500 mg [Keflex 500 mg] 500 mg PO TID 7 Days #21 cap
== END 2023-08-05 14:20 | disposition home or self-care (01) ==
LOC: ED 11:00
DX: L03.116 Cellulitis of left lower limb (principal); L03.115 Cellulitis of right lower limb; R60.0 Localized edema; I10 Essential (primary) hypertension; Z79.891 Long term (current) use of opiate analgesic; Z79.899 Other long term (current) drug therapy; Z28.310 Unvaccinated for COVID-19; Z72.0 Tobacco use
CPT/HCPCS: 36415; 71045; 80053; 83605; 83880; 85025; 85379; 85610; 85730; 93970; 99283

== ENCOUNTER 2023-10-25 09:58 | Emergency (ER) | payer OTHER ==
[2023-10-25 10:34] VITALS: TEMP 97.4
--- NOTE | 2023-10-25 11:18 | ERPHSYRPT ---
- History of Present Illness Time Seen by Provider: 10/25/23 11:00 Source: patient Exam Limitations: no limitations Patient Subjective Stated Complaint: SI pain radiating into left leg. Triage Nursing Assessment: 48 yr old female pt arrives to ED via POV. Pt ambulatory to room 10. Pt presents with complaints of chronic SI pain that is radiating down her left leg. Pt states that her gabapentin is not working and her pain is a 10/10. Pt is alert, oriented and not in distress. Pt is also reporting that she is out of her suboxone. Physician History: This is a 48-year-old white female patient of Dr. Rodriges who is her primary care provider and [facility] who provides this patient with prescriptions of Suboxone who presents to the emergency department with 3 to 4-day history of worsening left hip to left buttock to left posterior leg pain despite the use of her gabapentin. Patient did not suffer any acute fall or injury. Patient has been out of her Suboxone for greater than 3 days. Patient is a daily smoker of cigarettes. She has a history of migraine headache, stroke, arthritis, chronic left lower extremity sciatica and anxiety. There is no urinary incontinence. There is no bowel incontinence. There is no numbness in the patient's lower leg or foot on the left side. Method of Injury: other (No fall or acute injury) Occurred: other (No acute fall or injury) Quality: constant, sharpness, stabbing Severity of Pain-Max: moderate Severity of Pain-Current: moderate Lower Extremities Pain: hip: left (Left hip and buttock), leg: left (Upper posterior) Modifying Factors: Improves With: movement Associated Symptoms: other (Hurts to bear weight) Allergies/Adverse Reactions: Penicillins Allergy (Severe, Verified 10/25/23 10:34) swelling of throat Home Medications: Buspirone HCl 5 mg [Buspar 5 mg] 15 mg PO BID 10/12/21 [History] Lisinopril 10 mg [Zestril 10 MG] 10 mg PO DAILY 01/02/22 [History] Citalopram Hydrobromide [Celexa] 40 mg PO DAILY 03/27/23 [History] Furosemide [Lasix] 1 tablet PO DAILY 06/17/23 [History] ARIPiprazole [Aripiprazole] 1 tab PO DAILY 08/05/23 [History] Buprenorphine HCl/Naloxone HCl [Suboxone 8 mg-2 mg Sl Film] 1 film PO BID 08/05/23 [History] Cholestyramine Light 4 gm [QUESTRAN Light 4 GM Packet] 4 g PO BID 08/05/23 [History] Gabapentin [Neurontin] 1 cap PO TID 08/05/23 [History] Ibuprofen 1 tab PO TID PRN 08/05/23 [History] Potassium Chloride 1 cap PO DAILY 08/05/23 [History] Rizatriptan Benzoate [Rizatriptan] 1 tab PO DAILY PRN 08/05/23 [History] hydrOXYzine HCL [Hydroxyzine HCl] 1 tab PO TID PRN 08/05/23 [History] lamoTRIgine [Lamotrigine] 1 tab PO DAILY 08/05/23 [History] Hx Tetanus, Diphtheria Vaccination/Date Given: Yes Hx Influenza Vaccination/Date Given: No Hx Pneumococcal Vaccination/Date Given: No Travel Risk - International Travel Have you traveled outside of the country in past 3 weeks: No - Coronavirus Screening Are you exhibiting any of the following symptoms?: No Close contact with a COVID-19 positive Pt in past 14-21 Days: No - Vaccine Status Have you recieved a Covid-19 vaccination: No - Review of Systems Constitutional: No Symptoms Eyes: No Symptoms Ears, Nose, & Throat: No Symptoms Respiratory: No Symptoms Cardiac: No Symptoms Abdominal/Gastrointestinal: No Symptoms Genitourinary Symptoms: No Symptoms Musculoskeletal: Joint Pain (Left hip buttock and upper posterior left leg pain), No Fall, No Injury Skin: No Symptoms Neurological: No Symptoms Psychological: No Symptoms Endocrine: No Symptoms Hematologic/Lymphatic: No Symptoms Immunological/Allergic: No Symptoms All Other Systems: Reviewed and Negative - Past Medical History Pertinent Past Medical History: Yes Neurological History: Migraines, Stroke ENT History: No Pertinent History Cardiac History: Hypertension Respiratory History: No Pertinent History Endocrine Medical History: No Pertinent History Musculoskeletal History: Arthritis GI Medical History: No Pertinent History History: No Pertinent History Psycho-Social History: Anxiety, Depression Female Reproductive Disorders: No Pertinent History Other Medical History: SCIATIC NERVE PAIN - Past Surgical History Past Surgical History: Yes Neuro Surgical History: No Pertinent History Cardiac: No Pertinent History Respiratory: No Pertinent History Gastrointestinal: Cholecystectomy Genitourinary: No Pertinent History Musculoskeletal: Other Female Surgical History: No Pertinent History Other Surgical History: finger graft - Social History Smoking Status: Current every day smoker How long have you smoked: 35 years Exposure to second hand smoke: Yes Drug Use: none Patient Lives Alone: No - Female History Hx Last Menstrual Period: 09/21/2023 Hx Now: No - Nursing Vital Signs Nursing Vital Signs: Initial Vital Signs Temperature 97.4 F 10/25/23 10:28 Pulse Rate 99 H 10/25/23 10:28 Respiratory Rate 22 10/25/23 10:28 Blood Pressure 126/62 10/25/23 10:28 O2 Sat by Pulse Oximetry 98 10/25/23 10:28 Pain Scale Pain Intensity 10 - Physical Exam General Appearance: mild distress, alert, anxiety, obese Eyes, Ears, Nose, Throat Exam: moist mucous membranes, other (edentulous) Neck Exam: normal inspection, non-tender, supple, full range of motion Cardiovascular/Respiratory Exam: chest non-tender, no respiratory distress Gastrointestinal/Abdominal Exam: non-tender Back Exam: normal inspection, normal range of motion, No CVA tenderness, No vertebral tenderness Hips Exam: right: non-tender, normal inspection, normal range of motion, no evidence of injury, left: limited range of motion, soft tissue tenderness Legs Exam: bilateral leg: non-tender, normal inspection, normal range of motion, no evidence of injury Knees Exam: bilateral knee: non-tender, normal inspection, normal range of motion, no evidence of injury Ankle Exam: bilateral ankle: non-tender, normal inspection, normal range of motion, no evidence of injury Foot Exam: bilateral foot: non-tender, normal inspection, normal range of m otion, no evidence of injury Neuro/Tendon Exam: normal sensation, normal motor functions, normal tendon functions, no evidence tendon injury Mental Status Exam: alert, oriented x 3 Skin Exam: normal color, warm, dry SpO2 Interpretation: normal SpO2: 98 O2 Delivery: Room Air Ordered Tests: Medication Summary Discontinued Medications Generic Name Dose Route Start Last Admin Trade Name Freq PRN Reason Stop Dose Admin Methylprednisolone Sodium 0 mg 10/25/23 11:43 Succinate 125 mg/ Sterile IM 10/25/23 11:44 Water 2 ml STAT ONE Hydromorphone HCl 0.5 mg 10/25/23 11:41 Hydromorphone 1 Mg/1ml Inj IM 10/25/23 11:42 STAT ONE Ondansetron HCl 4 mg 10/25/23 11:42 Zofran 4 Mg/Udtablet Orally Disintegrating PO 10/25/23 11:43 STAT ONE Orphenadrine Citrate 60 mg 10/25/23 11:42 Orphenadrine Citrate 60 Mg/2 Ml Vial IM 10/25/23 11:43 STAT ONE - Progress Progress: improved, pain not gone completely Progress Note: 10/25/23 11:51 This patient's medical issue is 1 of low complexity. The level of complexity and the workup performed is based on the review of the patient's past medical history, review of the patient's medication list, review of the patient's drug allergy list, history of present illness and physical findings on examination. This patient's workup does not require lab or radiographic studies. Since the patient has been out of her Suboxone for greater than 3 days, I will provide her with a half a milligram Dilaudid intramuscularly, Zofran 4 mg ODT, orphenadrine 60 mg intramuscularly and Solu-Medrol 125 mg intramuscularly. Counseled pt/family regarding: diagnosis, need for follow-up Medical Desision Making - Diagnostic Testing Diagnostic test were ordered, analyzed, and reviewed by me: No - Risk of complications The pt has a mod risk of morbidity or mortality based on: Need for prescription drug management - Departure Departure Disposition: Home Clinical Impression: Left sided sciatica Condition: Stable Critical Care Time: No Referrals: ANDRZEJ RODRIGES [Primary Care Provider] - Follow up/PCP as directed Additional Instructions: Hold your gabapentin while taking the orphenadrine medication. Call your prescribing provider's today, 10/25/2023, to make arranges for follow-up appointment to refill prescriptions and for further management of your chronic sciatica pain. Prescriptions: Prednisone 10 mg [Deltasone 10 mg] 10 mg PO TID #12 tablet Orphenadrine Citrate 100 mg [Norflex 100 MG Tablet] 100 mg PO BID #10 tab
[2023-10-25] MEDS ORDERED: Hydromorphone 1 mg/ml Injection IM ONE (11:41)
[2023-10-25] MEDS ORDERED: Norflex 60 MG/2 ML IM ONE (11:42)
[2023-10-25] MEDS ORDERED: ZOFRAN ODT 4 MG PO ONE (11:42)
[2023-10-25] MEDS ORDERED: solu-MEDROL 125 MG, Sterile H2O 10 ml 2 ML IM ONE ×2 (11:43)
[2023-10-25] MEDS ORDERED: Sterile H2O 10 ml IJ ONE (11:56)
[2023-10-25] MEDS ORDERED: Norflex 60 MG/2 ML ONE (11:57)
[2023-10-25] MEDS ORDERED: ZOFRAN ODT 4 MG ONE (11:57)
[2023-10-25] MEDS ORDERED: solu-MEDROL ONE (11:57)
[2023-10-25] MEDS ORDERED: Hydromorphone 1 mg/ml Injection ONE (11:57)
[2023-10-25 12:36] VITALS: BP 130/77; PULSE 77; RESP 18; O2SAT 97
== END 2023-10-25 12:36 | disposition home or self-care (01) ==
LOC: ED 09:58
DX: M54.32 Sciatica, left side (principal); I10 Essential (primary) hypertension; Z79.52 Long term (current) use of systemic steroids; Z79.891 Long term (current) use of opiate analgesic; Z79.899 Other long term (current) drug therapy; Z28.310 Unvaccinated for COVID-19; Z72.0 Tobacco use
CPT/HCPCS: 96372; 99283; J1170; J2360; J2930; Q0162

== ENCOUNTER 2023-12-23 20:51 | Emergency (ER) | payer OTHER ==
[2023-12-23 23:03] VITALS: RESP 16; TEMP 97.2; O2SAT 99
[2023-12-23] MEDS ORDERED: TENIVAC VIAL IM ONE (23:13)
[2023-12-23] MEDS ORDERED: PERCOCET TABLET 5/325MG ONE (23:13)
[2023-12-23] MEDS ORDERED: Adacel Vial IM ONE (23:15)
[2023-12-23] MEDS: PERCOCET TABLET 5/325MG PO ONE (23:18)
[2023-12-23] MEDS: TENIVAC VIAL IM ONE (23:19)
--- NOTE | 2023-12-23 23:40 | ERPHSYRPT ---
- History of Present Illness Time Seen by Provider: 12/23/23 22:42 Source: patient Exam Limitations: no limitations Patient Subjective Stated Complaint: pt states she was walking and was bitten on the rt hand by stray dog. pt states she has pain in her whole hand radiating up her arm. states she does not know what kind of dog it was. Triage Nursing Assessment: pt alert and oriented, answers questions approp. pt ambulates into room with steady gait noted. respirations nonlabored. skin warm and dry. 2 puncture wounds to hand above thumb, no bleeding noted. 1 puncture wound to outer aspect of rt hand. Physician History: Patient has a right hand bite by a dog in her daughter's neighborhood. Initially she did tell triage nurse dog was a stray. However after speaking with the patient and the daughter they do feel that it is a neighborhood dog that somebody let out. Patient now has pain radiating up her arm. No other falls or trauma. Not sure what type of dog it was. Has not been reported to animal control yet. We will file a report with the health department. Allergies/Adverse Reactions: Penicillins Allergy (Severe, Verified 12/23/23 23:09) swelling of throat Home Medications: Buspirone HCl 5 mg [Buspar 5 mg] 15 mg PO BID 10/12/21 [History] Lisinopril 10 mg [Zestril 10 MG] 10 mg PO DAILY 01/02/22 [History] Citalopram Hydrobromide [Celexa] 40 mg PO DAILY 03/27/23 [History] Furosemide [Lasix] 1 tablet PO DAILY 06/17/23 [History] ARIPiprazole [Aripiprazole] 1 tab PO DAILY 08/05/23 [History] Buprenorphine HCl/Naloxone HCl [Suboxone 8 mg-2 mg Sl Film] 1 film PO BID 08/05/23 [History] Cholestyramine Light 4 gm [QUESTRAN Light 4 GM Packet] 4 g PO BID 08/05/23 [History] Gabapentin [Neurontin] 1 cap PO TID 08/05/23 [History] Ibuprofen 1 tab PO TID PRN 08/05/23 [History] Potassium Chloride 1 cap PO DAILY 08/05/23 [History] Rizatriptan Benzoate [Rizatriptan] 1 tab PO DAILY PRN 08/05/23 [History] hydrOXYzine HCL [Hydroxyzine HCl] 1 tab PO TID PRN 08/05/23 [History] lamoTRIgine [Lamotrigine] 1 tab PO DAILY 08/05/23 [History] Hx Tetanus, Diphtheria Vaccination/Date Given: No (unsure) Hx Influenza Vaccination/Date Given: No Hx Pneumococcal Vaccination/Date Given: No Immunizations Up to Date: No Travel Risk - International Travel Have you traveled outside of the country in past 3 weeks: No - Coronavirus Screening Are you exhibiting any of the following symptoms?: No Close contact with a COVID-19 positive Pt in past 14-21 Days: No - Vaccine Status Have you recieved a Covid-19 vaccination: No - Past Medical History Pertinent Past Medical History: Yes Neurological History: Migraines, Stroke ENT History: No Pertinent History Cardiac History: Hypertension Respiratory History: No Pertinent History Endocrine Medical History: No Pertinent History Musculoskeletal History: Arthritis GI Medical History: No Pertinent History History: No Pertinent History Psycho-Social History: Anxiety, Depression Female Reproductive Disorders: No Pertinent History Other Medical History: SCIATIC NERVE PAIN - Past Surgical History Past Surgical History: Yes Neuro Surgical History: No Pertinent History Cardiac: No Pertinent History Respiratory: No Pertinent History Gastrointestinal: Cholecystectomy Genitourinary: No Pertinent History Musculoskeletal: Other Female Surgical History: No Pertinent History Other Surgical History: finger graft - Social History Smoking Status: Current every day smoker How long have you smoked: 35 years Exposure to second hand smoke: Yes Drug Use: none Patient Lives Alone: No - Female History Hx Last Menstrual Period: last month Hx Now: No - Nursing Vital Signs Nursing Vital Signs: Initial Vital Signs Temperature 97.2 F 12/23/23 22:40 Pulse Rate 67 12/23/23 22:40 Respiratory Rate 16 12/23/23 22:40 Blood Pressure 138/90 12/23/23 22:40 O2 Sat by Pulse Oximetry 99 12/23/23 22:40 Pain Scale Pain Intensity 10 - Physical Exam SpO2: 99 Comments: 12/23/23 23:55 Review of Systems Constitutional: Negative for fever. HENT: Negative for congestion. Respiratory: Negative for shortness of breath. Cardiovascular: Negative for chest pain. Gastrointestinal: Negative for abdominal pain. Genitourinary: Negative for dysuria. Musculoskeletal: Negative for back pain. Skin: Negative for rash. Neurological: Negative for headaches. Psychiatric/Behavioral: Negative for behavioral problems. All other systems reviewed and are negative. Physical Exam Vitals signs and nursing note reviewed. Constitutional: Appearance: Patient is well-developed. HENT: Head: Normocephalic and atraumatic. Eyes: Conjunctiva/sclera: Conjunctivae normal. Neck: Musculoskeletal: Normal range of motion. Trachea: No tracheal deviation. Cardiovascular: Rate and Rhythm: Normal rate. Pulmonary: Effort: Pulmonary effort is normal. No respiratory distress. Abdominal: Palpations: Abdomen is soft. Musculoskeletal: General: Right hand demonstrates 3 puncture wounds. 2 over the dorsal thumb. 1 on the palmar surface, ulnar side. No obvious deformity, sensation intact, 2+ capillary refill, 2 point tactile discrimination intact. 5 out of 5 strength. Full range of motion without pain. Compartments are soft, nontender. Overlying skin shows no tenting, bruising, ecchymosis. Skin: General: Skin is warm and dry. Neurological/ Psychiatric: Mental Status: Mental status, behavior, interaction with environment is appropriate for patient's age and condition - Course Nursing assessment & vital signs reviewed: Yes Ordered Tests: Active Orders 24 hr Category Date Time Status HAND (MINIMUM 3 VIEWS) Stat Exams 12/23/23 23:01 Taken Medication Summary Discontinued Medications Generic Name Dose Route Start Last Admin Trade Name Go PRN Reason Stop Dose Admin Diphtheria/Tetanus/Acell Pertussis Confirm 12/23/23 23:15 Tdap --Diph,Pertuss(Acell),Tet Vac/Pf 0.5 Ml Vial Administered 12/23/23 23:16 Dose 0.5 ml IM .STK-MED ONE Oxycodone/Acetaminophen 1 tab 12/23/23 23:02 12/23/23 23:18 Oxycodone Hcl/Apap 5 Mg/325 Mg Tablet PO 12/23/23 23:03 1 tab STAT ONE Administration Oxycodone/Acetaminophen Confirm 12/23/23 23:13 Oxycodone Hcl/Apap 5 Mg/325 Mg Tablet Administered 12/23/23 23:14 Dose 1 tab .ROUTE .STK-MED ONE Tetanus/Diphtheria Toxoids Adsorbed 0.5 ml 12/23/23 23:02 12/23/23 23:19 Tetanus And Diphtheria Tox/Pf 0.5 Ml Vial IM 12/23/23 23:03 0.5 ml .ONCE ONE Administration Tetanus/Diphtheria Toxoids Adsorbed Confirm 12/23/23 23:13 Tetanus And Diphtheria Tox/Pf 0.5 Ml Vial Administered 12/23/23 23:14 Dose 0.5 ml IM .STK-MED ONE - Progress Progress: improved Progress Note: 12/23/23 23:56 X-ray obtained. I did review the x-ray myself no obvious foreign bodies, dog teeth, underlying fractures. We did update patient's tetanus shot. There is nothing repairable, puncture wounds. We will give Augmentin going home. I did discuss the importance of all antibiotic use, taking her entire prescription. Return here sooner for any new or changing symptoms. Counseled pt/family regarding: diagnosis, need for follow-up, rad results - Departure Departure Disposition: Home Clinical Impression: Dog bite of hand Condition: Stable Critical Care Time: No Referrals: ANDRZEJ LORENZO [Primary Care Provider] - Follow up/PCP as directed Instructions: Animal Bites (DC) Prescriptions: Amox Tr/Potass Clav. 875 mg [Augmentin 875-125 Tablet] 875 mg PO BID 10 Days #20 tablet
[2023-12-24 00:01] VITALS: BP 139/76; PULSE 87
--- NOTE | 2023-12-24 08:55 | XRAY ---
Indication: Dog bite. Comparison: None 3 view right hand obtained. No bony, articular, or soft tissue abnormalities.
== END 2023-12-23 23:54 | disposition home or self-care (01) ==
LOC: ED 20:51
DX: S60.571A Other superficial bite of hand of right hand, initial encounter (principal); W54.0XXA Bitten by dog, initial encounter
CPT/HCPCS: 73130; 90471; 90714; 90715; 99283; A9270-GY

== ENCOUNTER 2024-01-12 21:23 | Emergency (ER) | payer OTHER ==
[2024-01-12 21:50] VITALS: TEMP 97.6
--- NOTE | 2024-01-12 22:00 | ERPHSYRPT ---
- History of Present Illness Time Seen by Provider: 01/12/24 21:48 Historian: patient Exam Limitations: no limitations Physician History: Pt states for the past 3 days she has had diarrhea without blood, suprapubic abdominal pain 7/10 in severity, a sore throat, left earache and diaphoresis; for the past 2 days vomiting; pt denies fever, chest pain, shortness of air. Allergies/Adverse Reactions: Penicillins Allergy (Severe, Verified 01/12/24 22:10) swelling of throat Home Medications: Buspirone HCl 5 mg [Buspar 5 mg] 15 mg PO BID 10/12/21 [History] Lisinopril 10 mg [Zestril 10 MG] 10 mg PO DAILY 01/02/22 [History] Citalopram Hydrobromide [Celexa] 40 mg PO DAILY 03/27/23 [History] Furosemide [Lasix] 1 tablet PO DAILY 06/17/23 [History] ARIPiprazole [Aripiprazole] 1 tab PO DAILY 08/05/23 [History] Buprenorphine HCl/Naloxone HCl [Suboxone 8 mg-2 mg Sl Film] 1 film PO BID 08/05/23 [History] Cholestyramine Light 4 gm [QUESTRAN Light 4 GM Packet] 4 g PO BID 08/05/23 [History] Gabapentin [Neurontin] 1 cap PO TID 08/05/23 [History] Ibuprofen 1 tab PO TID PRN 08/05/23 [History] Potassium Chloride 1 cap PO DAILY 08/05/23 [History] Rizatriptan Benzoate [Rizatriptan] 1 tab PO DAILY PRN 08/05/23 [History] hydrOXYzine HCL [Hydroxyzine HCl] 1 tab PO TID PRN 08/05/23 [History] lamoTRIgine [Lamotrigine] 1 tab PO DAILY 08/05/23 [History] Hx Tetanus, Diphtheria Vaccination/Date Given: No (unsure) Hx Influenza Vaccination/Date Given: No Hx Pneumococcal Vaccination/Date Given: No - Review of Systems Constitutional: Chills, No Fever Ears, Nose, & Throat: Ear Pain, Throat Pain Respiratory: No Dyspnea Cardiac: No Chest Pain Abdominal/Gastrointestinal: Abdominal Pain, Vomiting, Diarrhea Genitourinary Symptoms: No Dysuria Neurological: No Headache - Past Medical History Pertinent Past Medical History: Yes Neurological History: Migraines, Stroke ENT History: No Pertinent History Cardiac History: Hypertension Respiratory History: No Pertinent History Endocrine Medical History: No Pertinent History Musculoskeletal History: Arthritis GI Medical History: No Pertinent History History: No Pertinent History Psycho-Social History: Anxiety, Depression Female Reproductive Disorders: No Pertinent History Other Medical History: SCIATIC NERVE PAIN - Past Surgical History Past Surgical History: Yes Neuro Surgical History: No Pertinent History Cardiac: No Pertinent History Respiratory: No Pertinent History Gastrointestinal: Cholecystectomy Genitourinary: No Pertinent History Musculoskeletal: Other Female Surgical History: No Pertinent History Other Surgical History: finger graft - Social History Smoking Status: Current every day smoker How long have you smoked: 35 years Exposure to second hand smoke: Yes Drug Use: none Patient Lives Alone: No - Nursing Vital Signs Nursing Vital Signs: Initial Vital Signs Temperature 97.6 F 01/12/24 21:44 Pulse Rate 93 H 01/12/24 21:44 Respiratory Rate 20 01/12/24 21:44 Blood Pressure 171/90 01/12/24 21:44 O2 Sat by Pulse Oximetry 98 01/12/24 21:44 Pain Scale Pain Intensity 7 - Physical Exam General Appearance: alert Eye Exam: PERRL/EOMI Ears, Nose, Throat Exam: pharyngeal erythema (mild), other (cerumen occlusion of both ears) Neck Exam: normal inspection Respiratory Exam: lungs clear Cardiovascular Exam: normal heart sounds Gastrointestinal/Abdomen Exam: soft, No normal bowel sounds (B.S. mildly hyperactive) Back Exam: normal inspection Neurologic Exam: alert, cooperative SpO2 Interpretation: normal SpO2: 98 O2 Delivery: Room Air - CT Exams Abdomen/Pelvis CT Interpretation: Tele-radiologist Report (Small left renal microlith. No other significant abnormality.) Ordered Tests: Active Orders 24 hr Category Date Time Status IV Insertion STAT Care 01/12/24 22:01 Active ABDOMEN AND PELVIS W/0 CONTRAS [CT] Stat Exams 01/12/24 22:01 Completed AMYLASE Stat Lab 01/12/24 22:35 Completed CBC W DIFF Stat Lab 01/12/24 22:35 Completed CMP Stat Lab 01/12/24 22:35 Completed HCG QUALITATIVE, URINE Stat Lab 01/12/24 22:35 Completed LIPASE Stat Lab 01/12/24 22:35 Completed UA W/RFX UR CULTURE Stat Lab 01/12/24 00:57 Completed Medication Summary Discontinued Medications Generic Name Dose Route Start Last Admin Trade Name Go PRN Reason Stop Dose Admin Hydromorphone HCl 0.5 mg 01/12/24 22:01 01/12/24 22:11 Hydromorphone 1 Mg/1ml Inj IV 01/12/24 22:02 0.5 mg STAT ONE Administration Hydromorphone HCl Confirm 01/12/24 22:05 Hydromorphone 1 Mg/1ml Inj Administered 01/12/24 22:06 Dose 1 mg .ROUTE .STK-MED ONE Sodium Chloride 1,000 mls @ 999 mls/hr 01/12/24 22:01 01/12/24 22:09 Sodium Chloride 0.9% 1000 Ml IV 01/12/24 23:01 999 mls/hr .Q1H1M STA Administration Sodium Chloride Confirm 01/12/24 22:06 Sodium Chloride 0.9% 1000 Ml Administered 01/12/24 22:07 Dose 1,000 mls @ ud .ROUTE .STK-MED ONE Ondansetron HCl 4 mg 01/12/24 22:01 01/12/24 22:09 Ondansetron Hcl 4 Mg/2 Ml Vial IV 01/12/24 22:02 4 mg STAT ONE Administration Ondansetron HCl Confirm 01/12/24 22:05 Ondansetron Hcl 4 Mg/2 Ml Vial Administered 01/12/24 22:06 Dose 4 mg .ROUTE .STK-MED ONE Lab/Rad Data: Laboratory Result Diagrams 01/12/24 22:35 01/12/24 22:35 Laboratory Results 01/12/24 01/12/24 01/12/24 Range/Units 22:35 22:35 22:35 WBC (4.0-10.5) x10^3/uL RBC (4.1-5.4) x10^6/uL Hgb (12.0-16.0) g/dL Hct (35-47) % MCV (78-100) fL MCH (26-32) pg MCHC (32-36) g/dL RDW (11.5-14.0) % Plt Count (150-450) x10^3/uL MPV (7.5-11.0) fL Gran % (36.0-66.0) % Immature Gran % (Auto) (0.00-0.4) % Nucleat RBC Rel Count (0.00-0.1) % Eos # (Auto) (0-0.5) x10^3/uL Immature Gran # (Auto) (0.00-0.03) x10^3u/L Absolute Lymphs (auto) (1.0-4.6) x10^3/uL Absolute Monos (auto) (0.0-1.3) x10^3/uL Absolute Nucleated RBC (0.00-0.01) x10^3u/L Lymphocytes % (24.0-44.0) % Monocytes % (0.0-12.0) % Eosinophils % (0.00-5.0) % Basophils % (0.0-0.4) % Absolute Granulocytes (1.4-6.9) x10^3/uL Basophils # (0-0.4) x10^3/uL Sodium (135-145) mmol/L Potassium (3.5-5.1) mmol/L Chloride (98-107) mmol/L Carbon Dioxide (22-30) mmol/L Anion Gap (5-15) MEQ/L BUN (7-17) mg/dL Creatinine (0.52-1.04) mg/dL Estimated GFR ML/MIN Glucose (74-106) mg/dL Calcium (8.4-10.2) mg/dL Total Bilirubin (0.2-1.3) mg/dL AST (14-36) U/L ALT (0-35) U/L Alkaline Phosphatase (38-126) U/L Serum Total Protein (6.3-8.2) g/dL Albumin (3.5-5.0) g/dL Amylase (30-110) U/L Lipase (23-300) U/L Urine Color (Yellow) Urine Appearance (Clear) Urine pH (4.6-8.0) Ur Specific Union (1.005-1.030) Urine Protein (Negative) Urine Glucose (UA) (Negative) mg/dL Urine Ketones (Negative) Urine Blood (Negative) Urine Nitrite (Negative) Urine Bilirubin (Negative) Urine Urobilinogen (0.2) mg/dL Ur Leukocyte Esterase (Negative) U Hyaline Cast (Auto) (0-2) /LPF Urine Microscopic RBC (0-5) /HPF Urine Microscopic WBC (0-5) /HPF Ur Epithelial Cells (None Seen) /HPF Urine Bacteria (None Seen) /HPF Urine Culture Reflexed (NO) Urine HCG, Qual NEGATIVE (NEGATIVE) Influenza Type A Ag NEGATIVE (NEGATIVE) Influenza Type B Ag NEGATIVE (NEGATIVE) RSV (PCR) NEGATIVE (NEGATIVE) SARS-CoV-2 (PCR) NEGATIVE (NEGATIVE) Group A Strep Antibody NOT DETECTED (NEGATIVE) 01/12/24 01/12/24 01/12/24 Range/Units 22:35 22:35 00:57 WBC 6.2 (4.0-10.5) x10^3/uL RBC 4.25 (4.1-5.4) x10^6/uL Hgb 12.7 (12.0-16.0) g/dL Hct 38.6 (35-47) % MCV 90.8 (78-100) fL MCH 29.9 (26-32) pg MCHC 32.9 (32-36) g/dL RDW 13.8 (11.5-14.0) % Plt Count 226 (150-450) x10^3/uL MPV 10.3 (7.5-11.0) fL Gran % 63.8 (36.0-66.0) % Immature Gran % (Auto) 0.3 (0.00-0.4) % Nucleat RBC Rel Count 0.0 (0.00-0.1) % Eos # (Auto) 0.04 (0-0.5) x10^3/uL Immature Gran # (Auto) 0.02 (0.00-0.03) x10^3u/L Absolute Lymphs (auto) 1.71 (1.0-4.6) x10^3/uL Absolute Monos (auto) 0.45 (0.0-1.3) x10^3/uL Absolute Nucleated RBC 0.00 (0.00-0.01) x10^3u/L Lymphocytes % 27.5 (24.0-44.0) % Monocytes % 7.2 (0.0-12.0) % Eosinophils % 0.6 (0.00-5.0) % Basophils % 0.6 (0.0-0.4) % Absolute Granulocytes 3.96 (1.4-6.9) x10^3/uL Basophils # 0.04 (0-0.4) x10^3/uL Sodium 138 (135-145) mmol/L Potassium 3.5 (3.5-5.1) mmol/L Chloride 107 (98-107) mmol/L Carbon Dioxide 27 (22-30) mmol/L Anion Gap 7.2 (5-15) MEQ/L BUN 8 (7-17) mg/dL Creatinine 0.61 (0.52-1.04) mg/dL Estimated GFR 111.6 ML/MIN Glucose 90 (74-106) mg/dL Calcium 8.6 (8.4-10.2) mg/dL Total Bilirubin 0.70 (0.2-1.3) mg/dL AST 81 H (14-36) U/L ALT 114 H (0-35) U/L Alkaline Phosphatase 120 (38-126) U/L Serum Total Protein 6.2 L (6.3-8.2) g/dL Albumin 3.4 L (3.5-5.0) g/dL Amylase 55 (30-110) U/L Lipase 44 (23-300) U/L Urine Color Dark Yellow A (Yellow) Urine Appearance Clear (Clear) Urine pH 7.5 (4.6-8.0) Ur Specific Union 1.025 (1.005-1.030) Urine Protein Negative (Negative) Urine Glucose (UA) Negative (Negative) mg/dL Urine Ketones 15 A (Negative) Urine Blood Negative (Negative) Urine Nitrite Negative (Negative) Urine Bilirubin Negative (Negative) Urine Urobilinogen 2.0 A (0.2) mg/dL Ur Leukocyte Esterase Trace A (Negative) U Hyaline Cast (Auto) NONE SEEN (0-2) /LPF Urine Microscopic RBC 0-2 (0-5) /HPF Urine Microscopic WBC 0-2 (0-5) /HPF Ur Epithelial Cells Few (None Seen) /HPF Urine Bacteria Rare A (None Seen) /HPF Urine Culture Reflexed NO (NO) Urine HCG, Qual (NEGATIVE) Influenza Type A Ag (NEGATIVE) Influenza Type B Ag (NEGATIVE) RSV (PCR) (NEGATIVE) SARS-CoV-2 (PCR) (NEGATIVE) Group A Strep Antibody (NEGATIVE) - Progress Progress: improved Counseled pt/family regarding: lab results, diagnosis, need for follow-up, rad results Medical Desision Making - Diagnostic Testing Diagnostic test were ordered, analyzed, and reviewed by me: Yes Radiological Interpretation: Teleradiologist Report - Departure Departure Disposition: Home Clinical Impression: Abdominal pain, Diarrhea, Vomiting Condition: Stable Critical Care Time: No Referrals: ANDRZEJ LORENZO [Primary Care Provider] - Follow up/PCP as directed Instructions: Diarrhea and Traveler's Diarrhea, Adult (DC), Severe Abdominal Pain, Adult (DC), Nausea and Vomiting, Adult (DC) Additional Instructions: Follow up with private doctor tomorrow. Prescriptions: Ondansetron ODT 4 MG [Zofran Odt 4 mg] 4 mg PO Q6H PRN PRN #10 tablet PRN Reason: Nausea
[2024-01-12] MEDS ORDERED: Hydromorphone 1 mg/ml Injection ONE (22:05)
[2024-01-12] MEDS ORDERED: Zofran 4 MG/2 ML VIAL ONE (22:05)
[2024-01-12] MEDS ORDERED: Sodium Chloride 0.9% 1000 ML 1,000 ML ONE (22:06)
[2024-01-12] MEDS: Sodium Chloride 0.9% 1000 ML 1,000 ML IV STA (22:09)
[2024-01-12] MEDS: Zofran 4 MG/2 ML VIAL IV ONE (22:09)
[2024-01-12] MEDS: Hydromorphone 1 mg/ml Injection IV ONE (22:11)
[2024-01-12 22:38] LABS: Absolute Neutrophil Ct (ANC) 3.96 x10^3/uL (1.4-6.9); BASOPHIL % 0.6 % (0.0-0.4); Basophil (Absolute #) 0.04 x10^3/uL (0-0.4); Eosinophil % 0.6 % (0.00-5.0); Eosinophil (Absolute #) 0.04 x10^3/uL (0-0.5); Hematocrit 38.6 % (35-47); Hemoglobin 12.7 g/dL (12.0-16.0); IMMATURE GRAN # 0.02 x10^3u/L (0.00-0.03); IMMATURE GRAN % 0.3 % (0.00-0.4); Lymphocyte (Absolute #) 1.71 x10^3/uL (1.0-4.6); Lymphocytes % 27.5 % (24.0-44.0); Mean Cell Volume 90.8 fL (78-100); Mean Corpuscular Hemoglobin 29.9 pg (26-32); Mean Corpuscular Hgb Concent. 32.9 g/dL (32-36); Mean Platelet Volume 10.3 fL (7.5-11.0); Monocyte (Absolute #) 0.45 x10^3/uL (0.0-1.3); Monocytes % 7.2 % (0.0-12.0); Neutrophil % 63.8 % (36.0-66.0); Platelet Count 226 x10^3/uL (150-450); Red Blood Count 4.25 x10^6/uL (4.1-5.4); Red Cell Distribution Width 13.8 % (11.5-14.0); White Blood Count 6.2 x10^3/uL (4.0-10.5)
[2024-01-12 22:43] LABS: HCG URINE TEST NEGATIVE (NEGATIVE)
[2024-01-12 22:52] LABS: ALBUMIN 3.4 g/dL (3.5-5.0); ANION GAP 7.2 MEQ/L (5-15); BILIRUBIN,TOTAL 0.7 mg/dL (0.2-1.3); Calcium 8.6 mg/dL (8.4-10.2); Creatinine 1 0.61 mg/dL (0.52-1.04); EST GLOMERULAR FILTRATION RATE 111.6 ML/MIN; Potassium 3.5 mmol/L (3.5-5.1); Total Protein 6.2 g/dL (6.3-8.2)
[2024-01-12 23:15] LABS: INFLUENZA A NEGATIVE (NEGATIVE); INFLUENZA B NEGATIVE (NEGATIVE); RESPIRATORY SYNCTIAL VIRUS NEGATIVE (NEGATIVE); SARS-CoV-2 Xpert Express NEGATIVE (NEGATIVE)
--- NOTE | 2024-01-13 00:27 | XRAY ---
CLINICAL HISTORY: pain COMPARISON: None TECHNIQUE: Contiguous axial images were obtained from the level of the diaphragm to the pubic symphysis without intravenous or oral contrast. Coronal and sagittal reconstructions were likewise performed and indicated to increase the sensitivity for detecting clinically relevant pathology. CT scan was performed according to ALARA (as low as reasonable achievable). FINDINGS: The visualized lung bases are clear. Evaluation of the abdominal and pelvic visceral organs is limited without intravenous contrast. The unenhanced liver, spleen, pancreas, and adrenal glands are grossly unremarkable. The gallbladder is surgically removed. The kidneys are normal in size and attenuation without obvious calcification. Small microlith noted in midpole calyx of left kidney, There is no hydronephrosis or perinephric stranding. The ureters are normal in caliber. No adenopathy or fluid collections are seen. No evidence of focal or diffuse bowel wall thickening or evidence of bowel obstruction is seen. The appendix is visualized in the right lower quadrant and appears within normal limits. The aorta is normal in caliber. The urinary bladder is normal in contour. Pelvic viscera including uterus and ovaries are grossly unremarkable. No aggressive appearing osseous lesions are identified. IMPRESSION: 1. Small left renal microlith 2. No other signficant abnormality Electronically Signed by: Evangelista Trejo MD. (01/13/2024 00:23:00 EDT)
[2024-01-13 00:38] VITALS: O2SAT 98
[2024-01-13 01:03] LABS: ADD URINE CULTURE? NO (NO); Appearance Clear (Clear); Bacteria Rare /HPF (None Seen); Bilirubin Negative (Negative); Blood Negative (Negative); Epithelial Cells Few /HPF (None Seen); Glucose, Urine Negative (Negative); Hyaline Casts NONE SEEN /LPF (0-2); Ketones 15 (Negative); Leukocyte Esterase Trace (Negative); Nitrite Negative (Negative); Ph 7.5 (4.6-8.0); Protein,Urine Dip Negative (Negative); RBC 0-2 /HPF (0-5); Specific Gravity 1.025 (1.005-1.030); WBC 0-2 /HPF (0-5)
[2024-01-13 01:48] VITALS: BP 168/76; PULSE 88; RESP 18
== END 2024-01-13 01:50 | disposition home or self-care (01) ==
LOC: ED 21:23
DX: R10.2 Pelvic and perineal pain (principal); R19.7 Diarrhea, unspecified; R11.2 Nausea with vomiting, unspecified; J02.9 Acute pharyngitis, unspecified; H92.02 Otalgia, left ear; I10 Essential (primary) hypertension; Z79.891 Long term (current) use of opiate analgesic; Z79.899 Other long term (current) drug therapy; Z72.0 Tobacco use
CPT/HCPCS: 0241U; 36000; 36415; 74176; 80053; 81001; 81025; 82150; 83690; 85025; 87651; 96374; 96375; 99284; J1170; J2405

== ENCOUNTER 2024-01-27 15:52 | Emergency (ER) | payer OTHER ==
[2024-01-27 16:14] VITALS: TEMP 98.4; O2SAT 98
--- NOTE | 2024-01-27 16:17 | ERPHSYRPT ---
- History of Present Illness Time Seen by Provider: 01/27/24 16:16 Source: patient Patient Subjective Stated Complaint: I have had a rash all over for about one month probably due to saop at sisters house. Triage Nursing Assessment: C/o rash all over body for approx one month. states rash may be due to using new type of soap at her sisters house. States rash very itchy, denies sob, lungs clear, resp easy, ambulatory. Has not taken any medications for rash. Physician History: This is a 48-year-old overweight white female patient who is been living at her sister's home for approximately 1 month. During this time she is using new, different type of soap. She noticed that she is having worsening rash of her skin. It is generalized. It itches. She has no known other exposures. Patient has a history of anxiety, migraine headaches, CVA, arthritis, hypertension, sciatic nerve pain. She is not short of breath. She denies chest pain. She denies abdominal pain. She has no nausea vomiting or diarrhea symptoms. She has not used any type of medication to help in relieving her symptoms. Timing/Duration: other Severity: moderate Location: generalized Possible Causes: no cause identified Associated Symptoms: rash Allergies/Adverse Reactions: Penicillins Allergy (Severe, Verified 01/12/24 22:10) swelling of throat Home Medications: Buspirone HCl 5 mg [Buspar 5 mg] 15 mg PO BID 10/12/21 [History] Lisinopril 10 mg [Zestril 10 MG] 10 mg PO DAILY 01/02/22 [History] Citalopram Hydrobromide [Celexa] 40 mg PO DAILY 03/27/23 [History] Furosemide [Lasix] 1 tablet PO DAILY 06/17/23 [History] ARIPiprazole [Aripiprazole] 1 tab PO DAILY 08/05/23 [History] Buprenorphine HCl/Naloxone HCl [Suboxone 8 mg-2 mg Sl Film] 1 film PO BID 08/05/23 [History] Cholestyramine Light 4 gm [QUESTRAN Light 4 GM Packet] 4 g PO BID 08/05/23 [History] Gabapentin [Neurontin] 1 cap PO TID 08/05/23 [History] Ibuprofen 1 tab PO TID PRN 08/05/23 [History] Potassium Chloride 1 cap PO DAILY 08/05/23 [History] Rizatriptan Benzoate [Rizatriptan] 1 tab PO DAILY PRN 08/05/23 [History] hydrOXYzine HCL [Hydroxyzine HCl] 1 tab PO TID PRN 08/05/23 [History] lamoTRIgine [Lamotrigine] 1 tab PO DAILY 08/05/23 [History] Hx Tetanus, Diphtheria Vaccination/Date Given: No (unsure) Hx Influenza Vaccination/Date Given: No Hx Pneumococcal Vaccination/Date Given: No Immunizations Up to Date: No Travel Risk - International Travel Have you traveled outside of the country in past 3 weeks: No - Emerging Infectious Disease Are you exhibiting symptoms associated with any current EIDs: No Symptoms: Abdominal Pain, Diarrhea, Headaches/Body Aches/, Loss of taste or smell, Vomitting - Review of Systems Constitutional: No Symptoms Eyes: No Symptoms Ears, Nose, & Throat: No Symptoms Respiratory: No Symptoms Cardiac: No Symptoms Abdominal/Gastrointestinal: No Symptoms Genitourinary Symptoms: No Symptoms Musculoskeletal: No Symptoms Skin: Rash (Generalized), Dryness (Generalized) Neurological: No Symptoms Psychological: No Symptoms Endocrine: No Symptoms Hematologic/Lymphatic: No Symptoms Immunological/Allergic: No Symptoms All Other Systems: Reviewed and Negative - Past Medical History Pertinent Past Medical History: Yes Neurological History: Migraines, Stroke ENT History: No Pertinent History Cardiac History: Hypertension Respiratory History: No Pertinent History Endocrine Medical History: No Pertinent History Musculoskeletal History: Arthritis GI Medical History: No Pertinent History History: No Pertinent History Psycho-Social History: Anxiety, Depression Female Reproductive Disorders: No Pertinent History Other Medical History: SCIATIC NERVE PAIN - Past Surgical History Past Surgical History: Yes Neuro Surgical History: No Pertinent History Cardiac: No Pertinent History Respiratory: No Pertinent History Gastrointestinal: Cholecystectomy Genitourinary: No Pertinent History Musculoskeletal: Other Female Surgical History: No Pertinent History Other Surgical History: finger graft - Female History Hx Last Menstrual Period: 01/27/24 Hx Now: No - Social History Smoking Status: Current every day smoker How long have you smoked: 35 years Exposure to second hand smoke: Yes Drug Use: none Patient Lives Alone: No - Nursing Vital Signs Nursing Vital Signs: Initial Vital Signs Temperature 98.4 F 01/27/24 16:00 Pulse Rate 96 H 01/27/24 16:00 Respiratory Rate 18 01/27/24 16:00 Blood Pressure 129/69 01/27/24 16:00 O2 Sat by Pulse Oximetry 98 01/27/24 16:00 Pain Scale Pain Intensity 0 - Physical Exam General Appearance: no apparent distress, alert, anxiety, obese Eye Exam: PERRL/EOMI, eyes nml inspection Ears, Nose, Throat Exam: normal ENT inspection, moist mucous membranes Neck Exam: normal inspection, non-tender, supple, full range of motion Respiratory Exam: airway intact, No chest tenderness, No respiratory distress Gastrointestinal/Abdomen Exam: No tenderness Pelvic Exam: not done Rectal Exam: not done Back Exam: normal inspection, normal range of motion, No CVA tenderness, No vertebral tenderness Extremity Exam: normal range of motion, pelvis stable Neurologic Exam: alert, oriented x 3, cooperative, family service aide II-XII nml as tested, normal mood/affect, nml cerebellar function, nml station & gait, sensation nml Skin Exam: dry (Generalized), rash (Generalized red raised, multiple distinct rash lesions.) Lymphatic Exam: No adenopathy SpO2 Interpretation: normal SpO2: 98 O2 Delivery: Room Air - Course Nursing assessment & vital signs reviewed: Yes Ordered Tests: Medication Summary Discontinued Medications Generic Name Dose Route Start Last Admin Trade Name Freq PRN Reason Stop Dose Admin Methylprednisolone Sodium 0 mg 01/27/24 16:30 Succinate 125 mg/ Sterile IM 01/27/24 16:31 Water 2 ml STAT ONE - Progress Progress: unchanged Progress Note: 01/27/24 16:37 My medical decision making and the assignment of low complexity to this patient's medical issue today is based on review of the patient's past medical history, review of the patient's medication list, review of the patient's drug allergy list, history present illness and physical findings on examination. The workup in this patient includes injection of 125 mg Solu-Medrol in tramuscularly. No radiographic or laboratory data is necessary. Differential diagnosis allergic reaction, contact dermatitis Counseled pt/family regarding: diagnosis, need for follow-up Medical Desision Making - Diagnostic Testing Diagnostic test were ordered, analyzed, and reviewed by me: No - Risk of complications The pt has a mod risk of morbidity or mortality based on: Need for prescription drug management - Departure Departure Disposition: Home Clinical Impression: Contact dermatitis, Dry skin dermatitis Condition: Stable Critical Care Time: No Referrals: ANDRZEJ LORENZO [Primary Care Provider] - Follow up/PCP as directed Additional Instructions: Keep the skin moisturized with unscented skin moisture 2-3 times a day. Take your medications as prescribed. Call your primary care provider tomorrow, 01/28/2024 to make arranges for follow-up appointment in the next 5 to 7 days. Prescriptions: Diphenhydramine HCl 25 mg [Benadryl 25 mg Capsule] 25 mg PO Q8H PRN PRN #12 cap PRN Reason: Itching Prednisone 10 mg [Deltasone 10 mg] 10 mg PO TID #12 tablet
[2024-01-27] MEDS ORDERED: solu-MEDROL ONE (16:38)
[2024-01-27] MEDS ORDERED: Sterile H2O 10 ml IJ ONE (16:38)
[2024-01-27] MEDS: solu-MEDROL 125 MG, Sterile H2O 10 ml 2 ML IM ONE (16:41)
[2024-01-27 16:50] VITALS: BP 131/69; PULSE 90; RESP 16
== END 2024-01-27 16:50 | disposition home or self-care (01) ==
LOC: ED 15:52
DX: L25.9 Unspecified contact dermatitis, unspecified cause (principal); L85.3 Xerosis cutis; I10 Essential (primary) hypertension; Z79.52 Long term (current) use of systemic steroids; Z79.891 Long term (current) use of opiate analgesic; Z79.899 Other long term (current) drug therapy; Z72.0 Tobacco use
CPT/HCPCS: 96372; 99282; J2919

== ENCOUNTER 2024-02-14 18:19 | Emergency (ER) | payer SELFPAY ==
[2024-02-14] MEDS ORDERED: BACIGUENT PACKET ONE (18:32)
[2024-02-14 18:36] VITALS: PULSE 130; RESP 22; TEMP 97
[2024-02-14] MEDS: BACIGUENT PACKET TP ONE (18:39)
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
[2024-02-14 18:49] VITALS: BP 101/77; O2SAT 90
== END 2024-02-14 18:59 | disposition home or self-care (01) ==
LOC: ED 18:19
DX: Z02.89 Encounter for other administrative examinations (principal); S80.212A Abrasion, left knee, initial encounter; S80.211A Abrasion, right knee, initial encounter; V48.4XXA Person boarding or alighting a car injured in noncollision transport accident, initial encounter; I10 Essential (primary) hypertension; Z79.891 Long term (current) use of opiate analgesic; Z79.899 Other long term (current) drug therapy; Z72.0 Tobacco use
CPT/HCPCS: 99283; A9270-GY